=== PATIENT | female | born 1935 | race Caucasian/White ===

== ENCOUNTER 2017-04-03 20:12 | Observation (INO) | payer OTHER ==
[~2017-04-03] VITALS: Ht 167.6 cm; Wt 98.0 kg
[~2017-04-03 20:12] MED LIST: CATAPRES0.3 MG PO; CEPHALEXIN500 MG PO; LIPITOR10 MG PO; METFORMIN HCL500 MG PO; [UNRECOGNIZED DRUG - OTHER] PO; [UNRECOGNIZED DRUG - REMARK]
--- NOTE | 2017-04-03 22:47 | DIAGNOSTIC IMAGING REPORT ---
PROCEDURE: XR CHEST 1 VIEW INDICATION: FEVER TECHNIQUE: Portable AP view (2240 hours). COMPARISON: Compared to chest x-ray on 08/26/2016. FINDINGS: Allowing for suboptimal inspiration, lungs are clear. Heart and mediastinum are normal. Thorax is normal. IMPRESSION: 1. Negative chest.
--- NOTE | 2017-04-03 22:57 | DIAGNOSTIC IMAGING REPORT ---
PROCEDURE: CT HEAD WITHOUT CONTRAST INDICATION: HEADACHE TECHNIQUE: Noncontrast axial images with sagittal and coronal reformations. COMPARISON: None. FINDINGS: Mild to moderate motion. 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 Brain and ventricles are otherwise normal. No evidence of an acute process or hemorrhage. Sinuses and mastoids are normal. IMPRESSION: 1. Allowing for motion, there is evidence of old small vessel disease of the frontal lobes. 2. Otherwise negative head CT. No evidence of acute process. 3. Findings discussed with Dr. Shane Weaver at [address] scans at this facility use dose modulation, iterative reconstruction, and/or weight-based dosing when appropriate to reduce radiation dose to as low as reasonably achievable.
--- NOTE | 2017-04-04 01:41 | ED CLINICAL REPORT ---
Clinical Report - Physicians/Mid Levels [facility] [address] [place] [address] 04/03/2017 20:12 Patient: MATHEW KUO Time Seen: 22:00 Apr 03 2017. Arrived- By private vehicle. Historian- patient. CPT: ER phys charges level 5 (#[id number]). HISTORY OF PRESENT ILLNESS Chief Complaint: WEAKNESS. ( Chills , PRATHER and chest pain. 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 Severity described as moderate at its maximum. When seen in the E.D., severity described as moderate. Modifying factors- relieved by nothing. Not worsened by anything. Described as feeling weak all over. This started today and is still present. No nausea or vomiting. Similar symptoms previously: None. Recent medical care: Not recently seen/assessed. REVIEW OF SYSTEMS The patient has had a headache and weakness. No double vision, fainting episodes, head injury, chest pain or palpitations. No black stools, bloody stools, fever, sore throat or cough. No difficulty breathing, abdominal pain, diarrhea, skin rash or enlarged lymph nodes. No chills. The patient has had difficulty walking. She has had moderate difficulty with urination (incontinent today.). All systems otherwise negative, except as recorded above. PAST HISTORY ( Healing Abscess. Abscess. Cellulitis. Sepsis. UTI - Urinary Tract Infection. Gallstone(s). Sebaceous Cyst. Vomiting. Hypercholesterolemia. Abrasion(s). Laceration. Diabetes Mellitus. Hypertension. ADDITIONAL SURGERIES: Cholecystectomy. Pylenital cyst drained.). Medications: Colcrys Oral. Metoprolol Tartrate Oral. Glipizide Oral. CloNIDine HCl Oral. Triamterene-HCTZ Oral. Aspirin Oral 325mg twice daily. MetFORMIN HCl Oral 500 mg, 2x a day. Allergies: Percodan. SOCIAL HISTORY Never smoker. No alcohol use or drug use. ADDITIONAL NOTES The nursing notes have been reviewed. PHYSICAL EXAM Vital Signs: 04/03/2017 20:16 BP: 176/104. HR: 84. RR: 36. O2 saturation: 99%. Temp: 99.5 F. Pain level now: 310. Appearance: Alert. Eyes: Pupils equal, round and reactive to light. No nystagmus. Extraocular movements normal. ENT: Normal ENT inspection. Dry mucous membranes present. Pharynx normal. Neck: Normal inspection. No meningeal signs. CVS: Normal heart rate and rhythm. Heart sounds normal. Pulses normal. Respiratory: No respiratory distress. Breath sounds normal. Abdomen: Soft. Mild tenderness in the lower abdomen. Back: Normal inspection. No CVA tenderness. Skin: Skin warm. Normal skin color. No rash. Extremities: Extremities exhibit normal ROM. No lower extremity edema. Neuro: Alert. Oriented X 3. Mood/affect normal. Speech normal. Cranial nerves normal (as tested). No cerebellar findings. No motor deficit. No sensory deficit. Reflexes normal. LABS, X-RAYS, AND EKG EKG: No acute ischemia. Rate: 111. Tachycardia. Normal P waves. Normal QRS complex. Left axis deviation. Mild ST depression in lead I, aVL, V5 and V6. Prior EKG unavailable. The study has been interpreted contemporaneously. The study has been independently viewed by me. The EKG appears to be a good tracing. CT Head: No acute changes. (old small vessel disease. no sinus disease.). Head CT performed with contrast. The study was independently viewed by me, interpreted by the radiologist and discussed with the radiologist. Laboratory Tests: Lactate, Serum: (EDWINA: 04/04/2017 05:48) ( AkgRcvd 04/04/2017 06:23) Final results Test Result Flag Units (Reference) LACTIC ACID 1.3 mmol/L (0.4-2.0) [id number]: (EDWINA: 04/04/2017 05:48) ( MsgRcvd 04/04/2017 06:37) Final results Test Result Flag Units (Reference) PROCALCITONIN 46.5 H ng/mL (0-0.5) PCT Concentration: Interpretation : Risk/option for action PCT <=0.5 ng/mL : Systemic : Low risk forinfection(sepsis): progression to severeis not likely. : systemic infection.Local bacterial : CAUTION-PCT levelsinfection is : below 0.5 ng/mL do notpossible. : exclude an infection,because localizedinfections (withoutsystemic signs) may beassociated with suchlow levels. If PCT ismeasured very earlyafter a bacterialchallenge (usually <6hours), these valuesmay still be low. Inthis case PCT shouldbe re-assessed 6-24hours later. PCT >0.5 and : Systemic infection: Moderate risk for<= 2 ng/mL : (sepsis) is : progression to severepossible, but : systemic infection.other conditions : The patient should beare known to : closely monitoredelevate PCT. : both clinically andby re-assessing PCTwithin 6-24 hours. PCT > 2 ng/mL : Systemic infection: High risk for(sepsis) is likely: progression to severeunless other : systemic infection.causes are known. : PCT >= 10 ng/mL : Important systemic: High likelihood ofinflammatory : severe sepsis orresponse, almost : septic shock.exclusively due to:severe bacterial :sepsis or septic :shock. : UA-Culture if indicated: (EDWINA: 04/03/2017 21:22) ( MsgRcvd 04/03/2017 21:51) Final results Test Result Flag Units (Reference) URINE COLOR YELLOW URINE APPEARANCE CLEAR URINE GLUCOSE NEGATIVE (NEGATIVE) URINE BILIRUBIN NEGATIVE (NEGATIVE) URINE KETONE NEGATIVE (NEGATIVE) URINE SPECIFIC GRAVITY 1.010 (1.010-1.030) URINE PH 6.0 (5.0-8.0) URINE PROTEIN 1+ (NEGATIVE) URINE UROBILINOGEN 0.2 EU/dL (0.2-1.0) URINE NITRITE NEGATIVE (NEGATIVE) URINE BLOOD TRACE-INTACT (NEGATIVE) URINE LEUK ESTERASE POSITIVE (NEGATIVE) URINE RBC 1-3 rbc/hpf (0-1) URINE WBC 25-50 wbc/hpf (0-1) URINE EPITHELIAL CELLS 1-3 EPI/hpf (0-5) URINE BACTERIA MODERATE (2+ TO 3+) (NONE SEEN) URINE COMMENT CULTURE INDICATED URINE CULTURES ARE SET-UP BASED ON THE FOLLOWING CRITERIA:POSITIVE NITRITEPOSITIVE LEUKOCYTE ESTERASEGREATER THAN 10 WHITE BLOOD CELLSMODERATE (2+) OR GREATER BACTERIA CBC w Diff: (EDWINA: 04/03/2017 21:08) ( [facility] [place] 04/03/2017 21:16) Final results Test Result Flag Units (Reference) WHITE BLOOD COUNT 4.7 K/uL (4.5-11.5) RED BLOOD COUNT 4.54 M/uL (4.00-5.20) HEMOGLOBIN 13.3 gm/dL (12.0-16.0) HEMATOCRIT 40.9 % (36.0-46.0) MEAN CELL VOLUME 90 fL (80-100) MEAN CORPUSCULAR HGB 29 pg (26-34) MEAN CORPUSCULAR HGB CONC 33 g/dL (31-37) RED CELL DISTRIBUTION WIDTH 13.9 % (11.6-14.8) PLATELET COUNT 330 K/uL (150-400) NEUTROPHIL % 92.4 H % (50-75) LYMPH % 6.5 L % (25-40) MONO % 0.3 L % (3-14) EOSINOPHIL % 0.8 % (0-4) BASOPHIL % 0 % (0-2) Lactate, Serum: (EDWINA: 04/03/2017 00:05) ( [facility] [place] 04/04/2017 00:49) Final results Test Result Flag Units (Reference) LACTIC ACID 2.2 H mmol/L (0.4-2.0) CRITICAL RESULTS CALLEDCalled to YULIET CASTAÑEDA RN 04/04/17 0048Were 2 patient identifiers used? YWas the result read back? Y [id number]: (EDWINA: 04/03/2017 21:10) ( MsgRcvd 04/04/2017 00:32) Final results Test Result Flag Units (Reference) PROCALCITONIN 0.2 ng/mL (0-0.5) PCT Concentration: Interpretation : Risk/option for action PCT <=0.5 ng/mL : Systemic : Low risk forinfection(sepsis): progression to severeis not likely. : systemic infection.Local bacterial : CAUTION-PCT levelsinfection is : below 0.5 ng/mL do notpossible. : exclude an infection,because localizedinfections (withoutsystemic signs) may beassociated with suchlow levels. If PCT ismeasured very earlyafter a bacterialchallenge (usually <6hours), these valuesmay still be low. Inthis case PCT shouldbe re-assessed 6-24hours later. PCT >0.5 and : Systemic infection: Moderate risk for<= 2 ng/mL : (sepsis) is : progression to severepossible, but : systemic infection.other conditions : The patient should beare known to : closely monitoredelevate PCT. : both clinically andby re-assessing PCTwithin 6-24 hours. PCT > 2 ng/mL : Systemic infection: High risk for(sepsis) is likely: progression to severeunless other : systemic infection.causes are known. : PCT >= 10 ng/mL : Important systemic: High likelihood ofinflammatory : severe sepsis orresponse, almost : septic shock.exclusively due to:severe bacterial :sepsis or septic :shock. : CMP: (EDWINA: 04/03/2017 21:08) ( MsgRcvd 04/03/2017 21:36) Final results Test Result Flag Units (Reference) GLUCOSE 83 mg/dL (70-110) BUN 36 H mg/dL (7-18) CREATININE 1.5 H mg/dL (0.6-1.3) Estimated GFR 35.16 mL/min Estimated GFR- 42.62 mL/min Note: Persistent reduction over 3 months in eGFR<60 mL/min/1.73 m2 defines CKD. Patients with eGFR values>=60 mL/min/1.73 m2 may also have CKD if evidence ofpersistent proteinuria. Additional information may be foundat www.kidney.org. SODIUM 142 mmol/L (136-145) POTASSIUM 4.6 mmol/L (3.5-5.1) CHLORIDE 104 mmol/L (98-107) CARBON DIOXIDE 23 mmol/L (21-32) CALCIUM 9.3 mg/dL (8.5-10.1) TOTAL PROTEIN 7.9 g/dL (6.4-8.2) ALBUMIN 3.2 L g/dL (3.3-5.0) BILIRUBIN, TOTAL 0.4 mg/dL (0.0-1.0) ALKALINE PHOSPHATASE 105 U/L (46-116) AST (SGOT) 20 U/L (15-37) ALT (SGPT) 16 U/L (12-78) . PROGRESS AND PROCEDURES Course of Care: IV NS BC times 1 Rocephin 2g IV Zofran 4 mg IV Vicodin 1 po times 2. Patient is stable. Symptoms better. Pt with early urosepsis. Will admit for further care. Discussed case with on-call health care provider, (Jael). Reviewed test results. Agreed upon treatment plan and decision to admit. Health care provider will see patient in ED. Patient/family counseled. Disposition orders written. Disposition: Admitted to Acute Care. CLINICAL IMPRESSION Acute generalized weakness. Early urosepsis. (Electronically signed by Shane Weaver MD 04/04/2017 7:38)
--- NOTE | 2017-04-04 01:41 | ED CLINICAL REPORT ---
Clinical Report - Physicians/Mid Levels [facility] [address] [place] [address] 04/03/2017 20:12 Patient: MATHEW KUO Time Seen: 22:00 Apr 03 2017. Arrived- By private vehicle. Historian- patient. CPT: ER phys charges level 5 (#[id number]). HISTORY OF PRESENT ILLNESS Chief Complaint: WEAKNESS. ( Chills , PRATHER and chest pain. Had rigors just [employer].). Severity described as moderate at its maximum. When seen in the E.D., severity described as moderate. Modifying factors- relieved by nothing. Not worsened by anything. Described as feeling weak all over. This started today and is still present. No nausea or vomiting. Similar symptoms previously: None. Recent medical care: Not recently seen/assessed. REVIEW OF SYSTEMS The patient has had a headache and weakness. No double vision, fainting episodes, head injury, chest pain or palpitations. No black stools, bloody stools, fever, sore throat or cough. No difficulty breathing, abdominal pain, diarrhea, skin rash or enlarged lymph nodes. No chills. The patient has had difficulty walking. She has had moderate difficulty with urination (incontinent today.). All systems otherwise negative, except as recorded above. PAST HISTORY ( Healing Abscess. Abscess. Cellulitis. Sepsis. UTI - Urinary Tract Infection. Gallstone(s). Sebaceous Cyst. Vomiting. Hypercholesterolemia. Abrasion(s). Laceration. Diabetes Mellitus. Hypertension. ADDITIONAL SURGERIES: Cholecystectomy. Pylenital cyst drained.). Medications: Colcrys Oral. Metoprolol Tartrate Oral. Glipizide Oral. CloNIDine HCl Oral. Triamterene-HCTZ Oral. Aspirin Oral 325mg twice daily. MetFORMIN HCl Oral 500 mg, 2x a day. Allergies: Percodan. SOCIAL HISTORY Never smoker. No alcohol use or drug use. ADDITIONAL NOTES The nursing notes have been reviewed. PHYSICAL EXAM Vital Signs: 04/03/2017 20:16 BP: 176/104. HR: 84. RR: 36. O2 saturation: 99%. Temp: 99.5 F. Pain level now: 310. Appearance: Alert. Eyes: Pupils equal, round and reactive to light. No nystagmus. Extraocular movements normal. ENT: Normal ENT inspection. Dry mucous membranes present. Pharynx normal. Neck: Normal inspection. No meningeal signs. CVS: Normal heart rate and rhythm. Heart sounds normal. Pulses normal. Respiratory: No respiratory distress. Breath sounds normal. Abdomen: Soft. Mild tenderness in the lower abdomen. Back: Normal inspection. No CVA tenderness. Skin: Skin warm. Normal skin color. No rash. Extremities: Extremities exhibit normal ROM. No lower extremity edema. Neuro: Alert. Oriented X 3. Mood/affect normal. Speech normal. Cranial nerves normal (as tested). No cerebellar findings. No motor deficit. No sensory deficit. Reflexes normal. LABS, X-RAYS, AND EKG EKG: No acute ischemia. Rate: 111. Tachycardia. Normal P waves. Normal QRS complex. Left axis deviation. Mild ST depression in lead I, aVL, V5 and V6. Prior EKG unavailable. The study has been interpreted contemporaneously. The study has been independently viewed by me. The EKG appears to be a good tracing. CT Head: No acute changes. (old small vessel disease. no sinus disease.). Head CT performed with contrast. The study was independently viewed by me, interpreted by the radiologist and discussed with the radiologist. Laboratory Tests: Lactate, Serum: (EDWINA: 04/04/2017 05:48) ( NcgRcvd 04/04/2017 06:23) Final results Test Result Flag Units (Reference) LACTIC ACID 1.3 mmol/L (0.4-2.0) [id number]: (EDWINA: 04/04/2017 05:48) ( MsgRcvd 04/04/2017 06:37) Final results Test Result Flag Units (Reference) PROCALCITONIN 46.5 H ng/mL (0-0.5) PCT Concentration: Interpretation : Risk/option for action PCT <=0.5 ng/mL : Systemic : Low risk forinfection(sepsis): progression to severeis not likely. : systemic infection.Local bacterial : CAUTION-PCT levelsinfection is : below 0.5 ng/mL do notpossible. : exclude an infection,because localizedinfections (withoutsystemic signs) may beassociated with suchlow levels. If PCT ismeasured very earlyafter a bacterialchallenge (usually <6hours), these valuesmay still be low. Inthis case PCT shouldbe re-assessed 6-24hours later. PCT >0.5 and : Systemic infection: Moderate risk for<= 2 ng/mL : (sepsis) is : progression to severepossible, but : systemic infection.other conditions : The patient should beare known to : closely monitoredelevate PCT. : both clinically andby re-assessing PCTwithin 6-24 hours. PCT > 2 ng/mL : Systemic infection: High risk for(sepsis) is likely: progression to severeunless other : systemic infection.causes are known. : PCT >= 10 ng/mL : Important systemic: High likelihood ofinflammatory : severe sepsis orresponse, almost : septic shock.exclusively due to:severe bacterial :sepsis or septic :shock. : UA-Culture if indicated: (EDWINA: 04/03/2017 21:22) ( MsgRcvd 04/03/2017 21:51) Final results Test Result Flag Units (Reference) URINE COLOR YELLOW URINE APPEARANCE CLEAR URINE GLUCOSE NEGATIVE (NEGATIVE) URINE BILIRUBIN NEGATIVE (NEGATIVE) URINE KETONE NEGATIVE (NEGATIVE) URINE SPECIFIC GRAVITY 1.010 (1.010-1.030) URINE PH 6.0 (5.0-8.0) URINE PROTEIN 1+ (NEGATIVE) URINE UROBILINOGEN 0.2 EU/dL (0.2-1.0) URINE NITRITE NEGATIVE (NEGATIVE) URINE BLOOD TRACE-INTACT (NEGATIVE) URINE LEUK ESTERASE POSITIVE (NEGATIVE) URINE RBC 1-3 rbc/hpf (0-1) URINE WBC 25-50 wbc/hpf (0-1) URINE EPITHELIAL CELLS 1-3 EPI/hpf (0-5) URINE BACTERIA MODERATE (2+ TO 3+) (NONE SEEN) URINE COMMENT CULTURE INDICATED URINE CULTURES ARE SET-UP BASED ON THE FOLLOWING CRITERIA:POSITIVE NITRITEPOSITIVE LEUKOCYTE ESTERASEGREATER THAN 10 WHITE BLOOD CELLSMODERATE (2+) OR GREATER BACTERIA CBC w Diff: (EDWINA: 04/03/2017 21:08) ( [facility] [place] 04/03/2017 21:16) Final results Test Result Flag Units (Reference) WHITE BLOOD COUNT 4.7 K/uL (4.5-11.5) RED BLOOD COUNT 4.54 M/uL (4.00-5.20) HEMOGLOBIN 13.3 gm/dL (12.0-16.0) HEMATOCRIT 40.9 % (36.0-46.0) MEAN CELL VOLUME 90 fL (80-100) MEAN CORPUSCULAR HGB 29 pg (26-34) MEAN CORPUSCULAR HGB CONC 33 g/dL (31-37) RED CELL DISTRIBUTION WIDTH 13.9 % (11.6-14.8) PLATELET COUNT 330 K/uL (150-400) NEUTROPHIL % 92.4 H % (50-75) LYMPH % 6.5 L % (25-40) MONO % 0.3 L % (3-14) EOSINOPHIL % 0.8 % (0-4) BASOPHIL % 0 % (0-2) Lactate, Serum: (EDWINA: 04/03/2017 00:05) ( [facility] [place] 04/04/2017 00:49) Final results Test Result Flag Units (Reference) LACTIC ACID 2.2 H mmol/L (0.4-2.0) CRITICAL RESULTS CALLEDCalled to YULIET CASTAÑEDA RN 04/04/17 0048Were 2 patient identifiers used? YWas the result read back? Y [id number]: (EDWINA: 04/03/2017 21:10) ( MsgRcvd 04/04/2017 00:32) Final results Test Result Flag Units (Reference) PROCALCITONIN 0.2 ng/mL (0-0.5) PCT Concentration: Interpretation : Risk/option for action PCT <=0.5 ng/mL : Systemic : Low risk forinfection(sepsis): progression to severeis not likely. : systemic infection.Local bacterial : CAUTION-PCT levelsinfection is : below 0.5 ng/mL do notpossible. : exclude an infection,because localizedinfections (withoutsystemic signs) may beassociated with suchlow levels. If PCT ismeasured very earlyafter a bacterialchallenge (usually <6hours), these valuesmay still be low. Inthis case PCT shouldbe re-assessed 6-24hours later. PCT >0.5 and : Systemic infection: Moderate risk for<= 2 ng/mL : (sepsis) is : progression to severepossible, but : systemic infection.other conditions : The patient should beare known to : closely monitoredelevate PCT. : both clinically andby re-assessing PCTwithin 6-24 hours. PCT > 2 ng/mL : Systemic infection: High risk for(sepsis) is likely: progression to severeunless other : systemic infection.causes are known. : PCT >= 10 ng/mL : Important systemic: High likelihood ofinflammatory : severe sepsis orresponse, almost : septic shock.exclusively due to:severe bacterial :sepsis or septic :shock. : CMP: (EDWINA: 04/03/2017 21:08) ( MsgRcvd 04/03/2017 21:36) Final results Test Result Flag Units (Reference) GLUCOSE 83 mg/dL (70-110) BUN 36 H mg/dL (7-18) CREATININE 1.5 H mg/dL (0.6-1.3) Estimated GFR 35.16 mL/min Estimated GFR- 42.62 mL/min Note: Persistent reduction over 3 months in eGFR<60 mL/min/1.73 m2 defines CKD. Patients with eGFR values>=60 mL/min/1.73 m2 may also have CKD if evidence ofpersistent proteinuria. Additional information may be foundat www.kidney.org. SODIUM 142 mmol/L (136-145) POTASSIUM 4.6 mmol/L (3.5-5.1) CHLORIDE 104 mmol/L (98-107) CARBON DIOXIDE 23 mmol/L (21-32) CALCIUM 9.3 mg/dL (8.5-10.1) TOTAL PROTEIN 7.9 g/dL (6.4-8.2) ALBUMIN 3.2 L g/dL (3.3-5.0) BILIRUBIN, TOTAL 0.4 mg/dL (0.0-1.0) ALKALINE PHOSPHATASE 105 U/L (46-116) AST (SGOT) 20 U/L (15-37) ALT (SGPT) 16 U/L (12-78) . PROGRESS AND PROCEDURES Course of Care: IV NS BC times 1 Rocephin 2g IV Zofran 4 mg IV Vicodin 1 po times 2. Patient is stable. Symptoms better. Pt with early urosepsis. Will admit for further care. Discussed case with on-call health care provider, (Jael). Reviewed test results. Agreed upon treatment plan and decision to admit. Health care provider will see patient in ED. Patient/family counseled. Disposition orders written. Disposition: Admitted to Acute Care. CLINICAL IMPRESSION Acute generalized weakness. Early urosepsis. (Electronically signed by Shane Weaver MD 04/04/2017 7:38)
--- NOTE | 2017-04-04 01:41 | ED NURSING NOTES ---
Clinical Report - Nurses [facility] [address] [place] [address] 04/03/2017 20:12 Patient: MATHEW KUO TRIAGE Triage time 20:Apr 03 2017. Acuity: LEVEL 3. Chief Complaint: CHILLS, HEADACHE and CHEST PAIN. Alert. No acute distress. SEPSIS SCREEN: Sepsis Screen: negative respiratory rate greater than 20. LUIZ COMA SCORE: Luiz Coma Scale: 15- eyes open spontaneously (4); best verbal response- oriented x 4 (5); best motor response- obeys commands (6). --20:27 Maranda Ware R.N. 20:16 04/03/17. BP: 176/104. HR: 84. RR: 36. O2 saturation: 99%. Temp: 99.5 F. Pain level now: 01/21. --20:27 Maranda Ware R.N. Weight: 99.7 kg stated. Height/Length: 108 inches Per Patient. BMI: 13.3. --20:19 Maranda Ware R.N. Medications Aspirin Oral 325mg twice daily. MetFORMIN HCl Oral 500 mg, 2x a day. --20:22 Maranda Ware R.N. Triamterene-HCTZ Oral. --20:23 Maranda Ware R.N. CloNIDine HCl Oral. --20:23 Maranda Ware R.N. Glipizide Oral. --20:24 Maranda Ware R.N. Metoprolol Tartrate Oral. --20:24 Maranda Ware R.N. Colcrys Oral. --20:25 Maranda Ware R.N. Allergies Percodan. --20:22 Maranda Ware R.N. History Arrived by EMS. Historian: patient. The patient has had pre-existing weakness. Treatment SENIOR ELECTRICAL PROJECT MANAGER: None. EMS treatment SENIOR ELECTRICAL PROJECT MANAGER verbally communicated. Finger stick glucose performed (153). BP: 158 / 60. HR: 76. RR: 13. PAST MEDICAL HX: Immunizations: status is unknown. SOCIAL HX: Never smoker. No alcohol use or drug use. No infectious disease exposure. SELF HARM ASSESSMENT: A self harm assessment was performed. The patient answered "no" to the question "Do you have thoughts of harming or killing yourself?". FALL RISK ASSESSMENT: Fall risk assessment completed. No fall risk identified. NUTRITIONAL RISK ASSESSMENT: The nutritional risk assessment revealed no deficiencies. FUNCTIONAL ASSESSMENT: Functional assessment: no impairments noted. LEARNING NEEDS ASSESSMENT: The learning needs assessment revealed no barriers. ABUSE ASSESSMENT: Abuse assessment: The patient was asked "Do you feel safe in your home?". SKIN INTEGRITY ASSESSMENT: Skin integrity risk assessment completed. No skin integrity risk identified. --20:27 Maranda Ware R.N. PROBLEMS: Healing Abscess. Abscess. Cellulitis. Sepsis. UTI - Urinary Tract Infection. Gallstone(s). Sebaceous Cyst. Vomiting. Hypercholesterolemia. Abrasion(s). Laceration. Diabetes Mellitus. Hypertension. --20:27 Maranda Ware R.N. ADDITIONAL SURGERIES: Cholecystectomy. Pylenital cyst drained. --20:27 Maranda Ware R.N. Interventions ID band on patient. To room. --20:27 Maranda Ware R.N. PHYSICAL ASSESSMENT GENERAL / NEURO / PSYCH: Alert. Oriented X 4. HEENT: No facial asymmetry noted. Mucous membranes are pink. RESPIRATORY: Respirations not labored. CVS: Capillary refill is greater than 2 seconds. GI / : Abdomen soft and nontender. EXTREMITIES: Lower extremity edema. SKIN: Skin is warm and dry. --20:38 Maranda Ware R.N. NURSING PROGRESS NOTES monitor technician placed on patient; clinical research monitor- Lead II; monitor alarms on. Patient gowned. Head of bed elevated. Patient identifiers checked. Call light placed in reach. Side rails up x 2. Bed placed in lowest position. Brakes of bed on. --20:38 Maranda Ware R.N. Finger stick glucose: 115. --20:43 Maranda Ware R.N. 20:43 04/03/2017 Site #1 started via IV in the left hand with an 22g angiocath, with aseptic technique and good blood return; two attempts. Saline lock flushed with 10 mL saline. --20:43 Maranda Ware R.N. Patient ID band checked for patient name and birthdate: family confirmed. Blood samples drawn from the left hand with syringe 23g by nurse ; labeled in presence of the patient and sent to lab: pediatric blood culture. --22:36 Maranda aWre R.N. 21:37 04/03/17. 14 fr silver catheter placed. Reason for indwelling catheter: requires prolonged immobilization. During procedure hand hygiene observed and sterile equipment and aseptic technique used. Return of 100 mL yellow-colored cloudy urine; attached to bedside drainage bag positioned below the bladder and secured with stabilization device. She tolerated procedure well. --22:37 Maranda Ware R.N. 22:48 04/03/2017 Started bag #1 1000 mL IV Fluids IV NS (Saline); at 250 mL/hr over 2 hour(s) via site #1 via IV pump. Allergies verified and confirmed 5 rights. IV patency established. IV site checked: no pain, redness, or swelling. IV flushed thoroughly pre- and post-medication administration. --22:53 Maranda Ware R.N. 22:49 04/03/2017 Started 2 gm of Rocephin (CefTRIAXone Sodium) IVPB in bag #1 50 mL; at 2 gm/hr over 1 hour(s) via site #1 via IV pump. Allergies verified and confirmed 5 rights. IV patency established. IV site checked: no pain, redness, or swelling. IV flushed thoroughly pre- and post-medication administration. --22:54 Maranda Ware R.N. 22:50 04/03/2017 Hydrocodone-APAP (Hydrocodone-Acetaminophen) PO 5/325 mg Tablets 1 tab given. Allergies verified, confirmed 5 rights and sedative warning given to the patient and patient's family. --22:55 Maranda Ware R.N. 22:55 04/03/2017 Zofran (Ondansetron HCl) IVP 4 mg given over 2 minute(s) via site #1. Allergies verified and confirmed 5 rights. IV patency established. IV site checked: no pain, redness, or swelling. IV flushed thoroughly pre- and post-medication administration. IVP given by RN. --22:55 Maranda Ware R.N. ( unable to run IVF at 500cc / hour due to small gauge IV and fragile veins. Notified MD that IVF are running at 250/hour). --22:56 Maranda Ware R.N. 23:03 04/03/17. BP: 155/85. HR: 104. RR: 33. O2 saturation: 91% on nasal cannula. O2 started at 2 liters/minute. --23:05 Maranda Ware R.N. Care transferred and report received (KAREEM Lopez). --23:12 Sami Hunter R.N. Care transferred and report given (KAREEM Herbert). --00:01 Sami Hunter R.N. 00:00 04/04/17. BP: 153/68. HR: 103. RR: 24. O2 saturation: 93%. Pain level now: 0/10. --00:21 Piedad Lieberman R.N. ( Patient given water (approved by ED phys)). --00:21 Piedad Lieberman R.N. Critical value relayed to ED by Matthieu. Critical value received by gail SERNA. Lactate level: 2.2. Critical value read back. Verified lab result and patient ID. ED physician notifed of critical value. --00:50 Gail Howe 00:56 04/04/2017 Rocephin IVPB Discontinued: bag #1 completed upon admission. Total amount infused: 50 mL. IV patency established. IV site checked: no pain, redness, or swelling. IV flushed thoroughly. --00:56 Sami Hunter R.N. ( Patient repositioned for comfort.). --01:48 Piedad Lieberman R.N. 04:01 04/04/2017 Hydrocodone-APAP (Hydrocodone-Acetaminophen) PO 5/325 mg Tablets 1 tab given. Allergies verified, confirmed 5 rights and sedative warning given to the patient. --04:01 Piedad Lieberman R.N. Intake & Output 01:47 04/04/17. Urine, with return of 500 mL yellow-colored cloudy urine; attached to bedside drainage bag. --01:47 Piedad Lieberman R.N. DISPOSITION / DISCHARGE Report was given to a nurse via a phone call. Report included patient's care, treatment, medications, reviewed medication reconcilliation, and condition (including any recent changes or anticipated changes). All questions were answered. Report was acknowledged and care was transferred. Bed obtained and ready (209). --03:50 Piedad Lieberman R.N. Admitted to the Critical Care Unit. Transported via stretcher by nurse (with CCU RN). --04:03 Piedad Lieberman R.N. ( Patient's IV saline locked and no fluids running upon admission to floor.). --06:01 Piedad Lieberman R.N. 03:15 04/04/17. BP: 152/60. HR: 95. RR: 21. O2 saturation: 95%. Pain level now: 0/10. --06:21 Piedad Lieberman R.N. Locked/Released at 04/04/2017 6:21 by Piedad Lieberman R.N.
--- NOTE | 2017-04-04 01:41 | ED ORDER SUMMARY ---
..... Patient: MATHEW KUO OrderSheet [facility] VisitID: [id number] [address] [place] [address] 82y, F Registration Date/Time: 04/03/2017 ORDER SHEET Weight: 99.7 kg (stated) Allergies: Percodan GENERAL ORDERS: CBC w Diff Urgent (20:39 04/03/2017 KKnebel R.N. per protocol) (Ack 20:41 AMcQuoid ER Tech1) (21:46 AMcQuoid ER Tech1) CMP Urgent (20:39 04/03/2017 KKnebel R.N. per protocol) (Ack 20:41 AMcQuoid ER Tech1) (21:46 AMcQuoid ER Tech1) UA-Culture if indicated Urgent (20:39 04/03/2017 KKnebel R.N. per protocol) (Ack 20:41 AMcQuoid ER Tech1) (22:24 KKnebel R.N.) EKG - ER Stat (20:39 04/03/2017 KKnebel R.N. per protocol) (Ack 20:41 AMcQuoid ER Tech1) (21:46 AMcQuoid ER Tech1) POC Glucose (20:39 04/03/2017 KKnebel R.N. per protocol) (Ack 20:41 AMcQuoid ER Tech1) (22:24 KKnebel R.N.) NPO (20:39 04/03/2017 KKnebel R.N. per protocol) (Ack 20:41 AMcQuoid ER Tech1) (22:24 KKnebel R.N.) Blood Culture (No) (N/A) Urgent (22:28 04/03/2017 Dimas WILLIS) (Ack 22:29 AMcQuoid ER Tech1) (22:37 KKnebel R.N.) CT Head wo Cont Urgent (22:29 04/03/2017 Dimas WILLIS) (22:37 KKnebel R.N.) Chest 1V Urgent (22:29 04/03/2017 Dimas WILLIS) (Ack 22:39 AMcQuoid ER Tech1) (22:45 Kartik) Lactate, Serum Urgent (23:42 04/03/2017 Dimas WILLIS) (Ack 23:46 AMcQuoid ER Tech1) (0:19 RMarsden R.N.) PCT (Procalcitonin) Urgent (23:42 04/03/2017 Dimas WILLIS) (Ack 23:46 AMcQuoid ER Tech1) (0:19 RMarsden R.N.) MEDICATION ORDERS: Hydrocodone-APAP PO 5/325 mg (NOW) (22:29 04/03/2017 Dimas WILLIS) (22:55 KKnebel R.N.) Hydrocodone-APAP PO 5/325 mg (NOW) (03:57 04/04/2017 Dimas WILLIS) (Ack 3:58 RMarsden R.N.) (4:01 RMarsden R.N.) IV FLUIDS: IV Saline Lock (20:39 04/03/2017 Checobel R.N. per protocol) (22:26 KKnebel R.N.) IV NS : initial bolus 500 mL (1000 mL/hr), then 250 mL/hr for 2h (NOW); Routine (22:27 04/03/2017 Dimas WILLIS) (22:53 KKnebel R.N.) Rocephin IV 2 gm/50mL (NOW) (22:28 04/03/2017 Dimas WILLIS) (22:54 KKnebel R.N.) Zofran IV 4 mg (NOW) (22:29 04/03/2017 Dimas WILLIS) (22:55 KKnebel R.N.) ORDER SHEET NOTES: [Electronically signed by Piedad Lieberman R.N. (06:21 04/04/2017)] [Electronically signed by Shane Weaver MD (07:38 04/04/2017)] [Electronically locked/signed by Piedad Lieberman R.N. (06:21 04/04/2017)]
--- NOTE | 2017-04-04 01:41 | ED ORDER SUMMARY ---
..... Patient: MATHEW KUO OrderSheet [facility] VisitID: [id number] [address] [place] [address] 82y, F Registration Date/Time: 04/03/2017 ORDER SHEET Weight: 99.7 kg (stated) Allergies: Percodan GENERAL ORDERS: CBC w Diff Urgent (20:39 04/03/2017 KKnebel R.N. per protocol) (Ack 20:41 AMcQuoid ER Tech1) (21:46 AMcQuoid ER Tech1) CMP Urgent (20:39 04/03/2017 KKnebel R.N. per protocol) (Ack 20:41 AMcQuoid ER Tech1) (21:46 AMcQuoid ER Tech1) UA-Culture if indicated Urgent (20:39 04/03/2017 KKnebel R.N. per protocol) (Ack 20:41 AMcQuoid ER Tech1) (22:24 KKnebel R.N.) EKG - ER Stat (20:39 04/03/2017 KKnebel R.N. per protocol) (Ack 20:41 AMcQuoid ER Tech1) (21:46 AMcQuoid ER Tech1) POC Glucose (20:39 04/03/2017 KKnebel R.N. per protocol) (Ack 20:41 AMcQuoid ER Tech1) (22:24 KKnebel R.N.) NPO (20:39 04/03/2017 KKnebel R.N. per protocol) (Ack 20:41 AMcQuoid ER Tech1) (22:24 KKnebel R.N.) Blood Culture (No) (N/A) Urgent (22:28 04/03/2017 Dimas WILLIS) (Ack 22:29 AMcQuoid ER Tech1) (22:37 KKnebel R.N.) CT Head wo Cont Urgent (22:29 04/03/2017 Dimas WILLIS) (22:37 KKnebel R.N.) Chest 1V Urgent (22:29 04/03/2017 Dimas WILLIS) (Ack 22:39 AMcQuoid ER Tech1) (22:45 Kartik) Lactate, Serum Urgent (23:42 04/03/2017 Dimas WILLIS) (Ack 23:46 AMcQuoid ER Tech1) (0:19 RMarsden R.N.) PCT (Procalcitonin) Urgent (23:42 04/03/2017 Dimas WILLIS) (Ack 23:46 AMcQuoid ER Tech1) (0:19 RMarsden R.N.) MEDICATION ORDERS: Hydrocodone-APAP PO 5/325 mg (NOW) (22:29 04/03/2017 Dimas WILLIS) (22:55 KKnebel R.N.) Hydrocodone-APAP PO 5/325 mg (NOW) (03:57 04/04/2017 Dimas WILLIS) (Ack 3:58 RMarsden R.N.) (4:01 RMarsden R.N.) IV FLUIDS: IV Saline Lock (20:39 04/03/2017 Checobel R.N. per protocol) (22:26 KKnebel R.N.) IV NS : initial bolus 500 mL (1000 mL/hr), then 250 mL/hr for 2h (NOW); Routine (22:27 04/03/2017 Dimas WILLIS) (22:53 KKnebel R.N.) Rocephin IV 2 gm/50mL (NOW) (22:28 04/03/2017 Dimas WILLIS) (22:54 KKnebel R.N.) Zofran IV 4 mg (NOW) (22:29 04/03/2017 Dimas WILLIS) (22:55 KKnebel R.N.) ORDER SHEET NOTES: [Electronically signed by Piedad Lieberman R.N. (06:21 04/04/2017)] [Electronically signed by Shane Weaver MD (07:38 04/04/2017)] [Electronically locked/signed by Piedad Lieberman R.N. (06:21 04/04/2017)]
--- NOTE | 2017-04-04 03:31 | Progress Note ---
Subjective General Admission History and Physical Examination Patient Name: Anuja Craolina. Admission Date: 04/04/2017 Primary Care Provider: Emilie Hopper [facility] Attending Physician: Socrates Omalley M.D. Admitting Physician: Jeffrey Elder M.D. Code Status: full Room: 209 S SUBJECTIVE Historian Patient Reliability: good Chief Complaint: Nausea, vomiting Weakness History of Present Illness: The patient is a 82-year-old female with significant past medical history of diabetes type 2, hypertension, hyperlipidemia, gouty arthritis, TIA presenting urinary frequency, rigors and chills. Patient reports that she's had minimal improvement with her home therapy. She began having worsening symptoms over the past day. Patient states that she's been having nausea, vomiting, chills. The [facility] ER evaluation was consistent with UTI; early signs of sepsis.. Secondary to the above, the patient was admitted by Jeffrey Elder M.D. for further evaluation and treatment. Clinic patient of Yulissa French. Relatively well-controlled blood pressure, cholesterol, diabetes. PAST MEDICAL HISTORY Illnesses: 1. Diabetes mellitus. 2. 2. Hypertension. 3. Hyperlipidemia. 4. Gouty arthritis. 5. TIA Allergies: 1. Procardia nifedipine Medications: 1. Metformin 1000 mg twice a day 2. Aspirin 325 mg twice a day 3. Atorvastatin 10 mg daily. 4. Colchicine 0.6 mg twice a day. 5. Clonidine 0.2 mg twice a day 6. Metoprolol 25 mg twice a day 7. Hydrochlorothiazide 25 mg daily Surgery: 1. Cholecystectomy 2. Pilonidal cyst Drainage Injuries: 1. No recent injuries FAMILY HISTORY Parents: 1. Father, passed, 2. Mother, passed SOCIAL HISTORY 1. Marital Status: Single, 2. Mandaeism: unknown 3. 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 Occupational health exposures: watched HABITS 1. Tobacco: noone 2. Drugs: none 3. Alcohol: none 4. Caffeine: uknown HEALTH SUPERVISION Item/Test uknown IMMUNIZATIONS: uknown ADVANCED DIRECTIVES: 1. Living well: partial 2. POLST: none 3. Code Status: No Code (no heroics) 4. Durable Power Pick Up Truck Driver Health care: daughter 5. Donor card: [facility] REVIEW OF SYSTEMS Remarkable for those things stated in the history of present illness and past medical history. Seventeen point review of system completed with the following notable findings: ROS Constitutional Fever, Chills, Weakness, Malaise. Eyes Denies: Vision Change. Respiratory Denies: Dry, SOB w/exertion. Cardiovascular Denies: Palpitations, Orthopnea. Musculoskeletal Denies: Arm Pain. Neurological Incoordination. Denies: Numbness. Physical Exam Vital Signs / I&Os Vital Signs Date Time Temp Pulse Resp B/P Pulse O2 O2 Flow FiO2 Ox Delivery Rate 04/04 439 98.4 91 18 152/66 100 Nasal 3.0 Cannula 04/04 433 3.0 General Appearance Oriented X3, Cooperative, Mild distress HEENT Normal exam, EOMI Lungs Clear to auscultation, Normal air movement Neck No JVD, No masses Cardiovascular Normal S1 and S2, No murmurs, gallops, rubs Abdomen Soft, No tenderness Extremities edematous changes LAB Results Laboratory Tests 04/03 Chemistry Plasma Sodium (136 - 145 mmol/L) 142 Plasma Potassium (3.5 - 5.1 mmol/L) 4.6 Plasma Chloride (98 - 107 mmol/L) 104 CO2 (Enzymatic) (21 - 32 mmol/L) 23 BUN (7 - 18 mg/dL) 36 Creatinine (0.6 - 1.3 mg/dL) 1.5 Est GFR ( Amer) (mL/min) 42.62 Est GFR (Non-Af Amer) (mL/min) 35.16 Glucose (70 - 110 mg/dL) 83 Plasma Calcium (8.5 - 10.1 mg/dL) 9.3 Total Bilirubin (0.0 - 1.0 mg/dL) 0.4 AST (15 - 37 U/L) 20 ALT (12 - 78 U/L) 16 Alkaline Phosphatase (46 - 116 U/L) 105 Total Protein (6.4 - 8.2 g/dL) 7.9 Albumin (3.3 - 5.0 g/dL) 3.2 Procalcitonin (0 - 0.5 ng/mL) 0.2 Hematology WBC (4.5 - 11.5 K/uL) 4.7 RBC (4.00 - 5.20 M/uL) 4.54 Hgb (12.0 - 16.0 gm/dL) 13.3 Hct (36.0 - 46.0 %) 40.9 MCV (80 - 100 fL) 90 MCH (26 - 34 pg) 29 RDW (11.6 - 14.8 %) 13.9 Neut % (Auto) (50 - 75 %) 92.4 Lymph % (Auto) (25 - 40 %) 6.5 Pickett % (Auto) (3 - 14 %) 0.3 Eos % (Auto) (0 - 4 %) 0.8 Baso % (Auto) (0 - 2 %) 0 Plt Count, EDTA (150 - 400 K/uL) 330 PUBS MCHC (31 - 37 g/dL) 33 Urines Urine Color YELLOW Urine Appearance CLEAR Urine pH (5.0 - 8.0) 6.0 Ur Specific Wellington (1.010 - 1.030) 1.010 Urine Protein (NEGATIVE) 1+ Urine Ketones (NEGATIVE) NEGATIVE Urine Blood (NEGATIVE) TRACE-INTACT Urine Nitrite (NEGATIVE) NEGATIVE Urine Bilirubin (NEGATIVE) NEGATIVE Urine Urobilinogen (0.2 - 1.0 EU/dL) 0.2 Ur Leukocyte Esterase (NEGATIVE) POSITIVE Urine RBC (0 - 1 rbc/hpf) 1-3 Urine WBC (0 - 1 wbc/hpf) 25-50 Ur Epithelial Cells (0 - 5 EPI/hpf) 1-3 Urine Bacteria (NONE SEEN) MODERATE (2+ TO 3+) Urine Glucose (NEGATIVE) NEGATIVE Urine Comment CULTURE INDICATED 04/04 0050 Chemistry Lactic Acid Cancelled Microbiology Date/Time Procedure - Status Source Growth 04/03 2235 Blood Culture - RECD BLOOD 04/03 2122 Urine Culture - RECD URINE CC 04/03 2100 Blood Culture - RECD BLOOD Assessment and Plan Problem List 1. UTI Plan UTI being treated well with daily dose of vancomycin. Patient could easily treated as an outpatient once the symptoms improve. Patient has had a risk for uroseptic picture. Ceftriaxone 1 g every 24. Discharge on oral antibiotics Follow-up with primary care 2. EARLY SEPSIS Plan Symptomatic response related to the recent UTI. - Monitor Trending labs Following serial pre-calcitonin and lactic acid. Continue with fluid hydration. Saline 100 cc. 3. HYPERTENSION Status Chronic Onset Date Unknown Plan Previous diagnosis of hypertension. Plan to continue with the clonidine, hydrochlorothiazide, metoprolol Monitor and trend blood pressure 4. DIABETES MELLITUS Status Chronic Onset Date Unknown Plan Plan hold any glyburide. Continue with the metformin Sliding scale Carb consistent diet. Current status: Fair. stable Anticipated discharge date: 1-2 days Anticipated discharge placement: Home Patient care time: Time spent in chart review, patient interview, physical exam, CPOE, and care documentation: 70 minutes Visit to patient today: 1 Complexity of care mild to moderate. E&M Codes Admission: Obsv-Comp/High/[id number]
[2017-04-04 04:39] VITALS: BP 152/66
[2017-04-04] MEDS ORDERED: METFORMIN HCL500 MG PO (04:56)
--- NOTE | 2017-04-04 05:50 | Progress Note ---
Subjective General ADVANCED CARE PLAN History of Present Illness 82-year-old female with significant past medical history of diabetes type 2, hypertension, hyperlipidemia, gouty arthritis, TIA presenting urinary frequency , rigors and chills. Patient reports that she's had minimal improvement with her home therapy. She began having worsening symptoms over the past day. Patient states that she's been having nausea, vomiting, chills. The [facility] ER evaluation was consistent with UTI; early signs of sepsis.. Secondary to the above, the patient was admitted by Jeffrey Elder M.D. for further evaluation and treatment. A discussion was undertaken with the patient regarding previous advance care arrangements/decisions. The following advanced directives were noted by the patient and discussed with me at the time of admission. ADVANCED DIRECTIVES: 1. Living well: reviewed; yes 2. POLST: none 3. CODE STATUS: No code 4. 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 Donor card:none The patient has expressed interest in not pursuing any form of resuscitation at this time. She has opted not to pursue intubation/mechanical ventilation, CPR, electrical cardioversion, or life-sustaining efforts involving drugs at the time of cardiopulmonary arrest. The patient's wishes were documented in the chart and orders regarding the patient's wishes entered into the [employer] CPOE system. The "Advance Care Plan Document" was not distributed to patient to discuss with her family. Less than 30 minutes was spent in performing the above tasks and documentation of the patient's advanced care plan.
--- NOTE | 2017-04-04 05:50 | Progress Note ---
Subjective General ADVANCED CARE PLAN History of Present Illness 82-year-old female with significant past medical history of diabetes type 2, hypertension, hyperlipidemia, gouty arthritis, TIA presenting urinary frequency , rigors and chills. Patient reports that she's had minimal improvement with her home therapy. She began having worsening symptoms over the past day. Patient states that she's been having nausea, vomiting, chills. The [facility] ER evaluation was consistent with UTI; early signs of sepsis.. Secondary to the above, the patient was admitted by Jeffrey Elder M.D. for further evaluation and treatment. A discussion was undertaken with the patient regarding previous advance care arrangements/decisions. The following advanced directives were noted by the patient and discussed with me at the time of admission. ADVANCED DIRECTIVES: 1. Living well: reviewed; yes 2. POLST: none 3. CODE STATUS: No code 4. 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 Donor card:none The patient has expressed interest in not pursuing any form of resuscitation at this time. She has opted not to pursue intubation/mechanical ventilation, CPR, electrical cardioversion, or life-sustaining efforts involving drugs at the time of cardiopulmonary arrest. The patient's wishes were documented in the chart and orders regarding the patient's wishes entered into the [employer] CPOE system. The "Advance Care Plan Document" was not distributed to patient to discuss with her family. Less than 30 minutes was spent in performing the above tasks and documentation of the patient's advanced care plan.
[2017-04-04 07:39] VITALS: BP 146/52
--- NOTE | 2017-04-04 07:39 | ED MED RECONCILIATION SUMMARY ---
Patient: MATHEW KUO Medication Reconciliation Report [facility] VisitID: [id number] [address] [place] [address] 82y, F Registration Date/Time: 04/03/2017 Weight: 99.7 kg Height/Length: 108 in. BMI: 13.3 ALLERGIES: Percodan The patient's Home Medications are listed below: THE FOLLOWING MEDICATIONS NEED TO BE RECONCILED: Aspirin Oral 325mg twice daily CloNIDine HCl Oral Colcrys Oral Glipizide Oral MetFORMIN HCl Oral 500 mg, 2x a day Metoprolol Tartrate Oral Triamterene-HCTZ Oral The source(s) of the original Home Medication information: Not obtained. The following Medications were given to the patient in the Emergency Department: IV NS IV Fluids bolus 0, then 250 mL/hr, administered: 04/03/2017 10:48:00 PM Rocephin [IVPB] IVPB bolus 0, then 2 gm 2 gm/hr, administered: 04/03/2017 10:49:00 PM Hydrocodone-APAP [PO] PO 1 tab, administered: 04/03/2017 10:50:00 PM Zofran [IVP] IVP 4 mg, administered: 04/03/2017 10:55:00 PM Hydrocodone-APAP [PO] PO 1 tab, administered: 04/04/2017 4:01:00 AM The following Medications were prescribed to the patient: None.
--- NOTE | 2017-04-04 07:39 | ED MAR SUMMARY ---
..... Medication Administration Record [facility] [address] [place] [address] Patient: MATHEW KUO Visit ID: [id number] 82y, F Weight: 99.7 kg Height/Length: 108 in BMI: 13.3 ALLERGIES: Percodan Start 22:48 04/03/2017 Maranda Ware R.N. Medication Administered: IV NS (SALINE), Dose: IV Fluids over 2 hour(s), Rate: 250 mL/hr, Dispensed: 1000 mL bag, Site: #1 left hand. Medication Ordered: IV NS : initial bolus 500 mL (1000 mL/hr), then 250 mL/hr for 2h (NOW); Routine. Start 22:49 04/03/2017 Maranda Ware R.N., Stop 00:56 04/04/2017 Sami Hunter R.N. Medication Administered: ROCEPHIN [IVPB] (CEFTRIAXONE SODIUM), Dose: 2 gm IVPB over 1 hour(s), Rate: 2 gm/hr, Dispensed: 50 mL bag, Site: #1 left hand. Medication Ordered: Rocephin IV 2 gm/50mL (NOW). Given 22:50 04/03/2017 Maranda Ware R.N. Medication Administered: HYDROCODONE-APAP [PO] (HYDROCODONE-ACETAMINOPHEN), Dose: 1 tab 5/325 mg Tablets PO. Medication Ordered: Hydrocodone-APAP PO 5/325 mg (NOW). Given 22:55 04/03/2017 Maranda Ware R.N. Medication Administered: ZOFRAN [IVP] (ONDANSETRON HCL), Dose: 4 mg IVP over 2 minute(s), Site: #1 left hand. Medication Ordered: Zofran IV 4 mg (NOW). Given 04:01 04/04/2017 Piedad Lieberman R.N. Medication Administered: HYDROCODONE-APAP [PO] (HYDROCODONE-ACETAMINOPHEN), Dose: 1 tab 5/325 mg Tablets PO. Medication Ordered: Hydrocodone-APAP PO 5/325 mg (NOW).
--- NOTE | 2017-04-04 07:39 | ED DISCHARGE INSTRUCTIONS ---
Patient: MATHEW KUO General Instructions [facility] VisitID: [id number] [address] [place] [address] 82y, F Registration Date/Time: 04/03/2017 Acute generalized weakness. Early urosepsis. (Electronically signed by Shane Weaver MD 04/04/2017 7:38)
--- NOTE | 2017-04-04 07:39 | ED MED RECONCILIATION SUMMARY ---
Patient: MATHEW KUO Medication Reconciliation Report [facility] VisitID: [id number] [address] [place] [address] 82y, F Registration Date/Time: 04/03/2017 Weight: 99.7 kg Height/Length: 108 in. BMI: 13.3 ALLERGIES: Percodan The patient's Home Medications are listed below: THE FOLLOWING MEDICATIONS NEED TO BE RECONCILED: Aspirin Oral 325mg twice daily CloNIDine HCl Oral Colcrys Oral Glipizide Oral MetFORMIN HCl Oral 500 mg, 2x a day Metoprolol Tartrate Oral Triamterene-HCTZ Oral The source(s) of the original Home Medication information: Not obtained. The following Medications were given to the patient in the Emergency Department: IV NS IV Fluids bolus 0, then 250 mL/hr, administered: 04/03/2017 10:48:00 PM Rocephin [IVPB] IVPB bolus 0, then 2 gm 2 gm/hr, administered: 04/03/2017 10:49:00 PM Hydrocodone-APAP [PO] PO 1 tab, administered: 04/03/2017 10:50:00 PM Zofran [IVP] IVP 4 mg, administered: 04/03/2017 10:55:00 PM Hydrocodone-APAP [PO] PO 1 tab, administered: 04/04/2017 4:01:00 AM The following Medications were prescribed to the patient: None.
--- NOTE | 2017-04-04 07:39 | ED MAR SUMMARY ---
..... Medication Administration Record [facility] [address] [place] [place] [address] Patient: MATHEW KUO Visit ID: [id number] 82y, F Weight: 99.7 kg Height/Length: 108 in BMI: 13.3 ALLERGIES: Percodan Start 22:48 04/03/2017 Maranda Ware R.N. Medication Administered: IV NS (SALINE), Dose: IV Fluids over 2 hour(s), Rate: 250 mL/hr, Dispensed: 1000 mL bag, Site: #1 left hand. Medication Ordered: IV NS : initial bolus 500 mL (1000 mL/hr), then 250 mL/hr for 2h (NOW); Routine. Start 22:49 04/03/2017 Maranda Ware R.N., Stop 00:56 04/04/2017 Sami Hunter R.N. Medication Administered: ROCEPHIN [IVPB] (CEFTRIAXONE SODIUM), Dose: 2 gm IVPB over 1 hour(s), Rate: 2 gm/hr, Dispensed: 50 mL bag, Site: #1 left hand. Medication Ordered: Rocephin IV 2 gm/50mL (NOW). Given 22:50 04/03/2017 Maranda Ware R.N. Medication Administered: HYDROCODONE-APAP [PO] (HYDROCODONE-ACETAMINOPHEN), Dose: 1 tab 5/325 mg Tablets PO. Medication Ordered: Hydrocodone-APAP PO 5/325 mg (NOW). Given 22:55 04/03/2017 Maranda Ware R.N. Medication Administered: ZOFRAN [IVP] (ONDANSETRON HCL), Dose: 4 mg IVP over 2 minute(s), Site: #1 left hand. Medication Ordered: Zofran IV 4 mg (NOW). Given 04:01 04/04/2017 Piedad Lieberman R.N. Medication Administered: HYDROCODONE-APAP [PO] (HYDROCODONE-ACETAMINOPHEN), Dose: 1 tab 5/325 mg Tablets PO. Medication Ordered: Hydrocodone-APAP PO 5/325 mg (NOW).
--- NOTE | 2017-04-04 07:39 | ED DISCHARGE INSTRUCTIONS ---
Patient: MATHEW KUO General Instructions [facility] VisitID: [id number] [address] [place] [address] 82y, F Registration Date/Time: 04/03/2017 Acute generalized weakness. Early urosepsis. (Electronically signed by Shane Weaver MD 04/04/2017 7:38)
[2017-04-04 11:11] VITALS: BP 104/62
[2017-04-04 14:40] VITALS: BP 125/46
[2017-04-04 18:20] VITALS: BP 101/83
[2017-04-04 22:32] VITALS: BP 117/60
[2017-04-05] VITALS (8 sets, daily range): BP systolic 121–208; BP diastolic 41–97
[2017-04-05] MEDS ORDERED: LEVAQUIN500 MG PO (10:10)
--- NOTE | 2017-04-05 10:45 | DISCHARGE SUMMARY ---
ADMIT DATE: 04/04/2017 DISCHARGE DATE: 04/05/2017 DISCHARGE DIAGNOSES: 1. Urinary tract infection 2. Diabetes mellitus 3. Hypertension BRIEF HISTORY: This is an 82-year-old white female who was admitted on 2016, presented to the emergency with frequency and chills and rigors, which progressively became worse during the day of the admission, with some nausea and vomiting along with chills. She came to the ED and evaluation showed UTI and possible signs of sepsis, so the patient was admitted for treatment and further evaluation. HOSPITAL COURSE: The patient was admitted and started on Rocephin IV and did well since then. The patient improved during the hospital course, and right now she is doing well. She did not have any chills since last night, and no dysuria or frequency anymore and feeling stronger. No nausea or vomiting since last night, and ambulating and eating and drinking. No fever and no chills, so the patient would like to go home, to follow up with her primary care physician. PHYSICAL EXAMINATION: Vital Signs: Temperature is 98.6, pulse is 74, respirations 16, blood pressure 132/47, and oxygen saturation is 90% on room air. Lungs: Clear to auscultation. No wheezing or rhonchi. Heart: Regular S1, S2. No murmur. No S3 was heard. Abdomen: Soft, nontender. Bowel sounds are positive. Extremities: No edema. LAB/IMAGING: White blood count is 15.4, hemoglobin 10.3, hematocrit count 31.3, and platelet count is 231. Sodium is 140, creatinine is 1.6, potassium 4.2, chloride is 107, CO2 is 24, BUN is 36. Glucose 111, magnesium is 1.4. Liver enzymes unremarkable. Albumin is 2.4. So the patient has no other signs of infection, except high white blood count, but this can be managed as an outpatient anyway and can be repeated as an outpatient to make sure white blood count is coming down. DISCHARGE INSTRUCTIONS/MEDICATIONS: The patient will go back to his regular medications, which would be: Metformin 1000 mg twice a day. Aspirin 325 once a day. Atorvastatin 10 mg daily. Colchicine 0.6 mg (it says twice a day but I think it is once a day). Clonidine 0.20 mg 3 times a day. Metoprolol 25 mg twice a day. Hydrochlorothiazide 25 mg daily. The patient will be on also Levaquin 500 mg daily for 7 more days. The patient will follow up with her primary care physician as an outpatient within a week. The patient will receive 2 grams of IV magnesium before discharge today, and then the patient will go home.
--- NOTE | 2017-04-05 12:52 | Progress Note ---
Subjective General pateint was doing fine till few mintues ago, felt weak dizzy and lost her balance had to sit down,feels nausea, and dose not feel good and became pale, her vitals stable, in last admission had Afib, will hold discharge and put her on telemetry and do EKG, send cbc and chem 7 troponin I
[2017-04-06 02:29] VITALS: BP 148/60
[2017-04-06 06:48] VITALS: BP 169/61
--- NOTE | 2017-04-06 08:27 | Progress Note ---
Subjective General Today feeling much better, no palpitation no nause no vomiting no dyspnea, no dizziness, ambulating fine and eating and drinking fine Physical Exam Vital Signs / I&Os Vital Signs Date Time Temp Pulse Resp B/P Pulse O2 O2 Flow FiO2 Ox Delivery Rate 04/06 0648 98.8 88 20 169/61 97 Room Air 2.0 04/06 0236 97 Room Air 04/06 0229 98.8 63 20 148/60 100 Nasal 2.0 Cannula 04/05 2248 98.6 73 20 151/69 100 Nasal 2.0 Cannula 04/05 1925 Room Air 04/05 1820 98.4 91 20 159/73 98 Room Air 04/05 1546 101 20 208/91 92 Room Air 04/05 1435 99.1 92 20 178/97 95 Room Air 04/05 1226 98.8 75 20 145/54 95 Room Air 0.0 04/05 1038 99.7 72 16 143/58 90 Room Air 0.0 I&O 04/06 0000 04/05 1600 04/05 0800 Intake Total 360 120 783 Output Total 965 575 800 Balance -605 -197 -17 General Appearance No acute distress Lungs Normal exam (few crackles in bases) Neck Supple Cardiovascular Regular rate and rhythm, Normal S1 and S2, No murmurs, gallops, rubs Abdomen Normal bowel sounds, Soft, No tenderness Extremities No edema Skin No Rashes Psych/Mental Status Mental status normal LAB Results Laboratory Tests 04/06 04/05 0540 1305 Chemistry Plasma Sodium (136 - 145 mmol/L) 143 141 Plasma Potassium (3.5 - 5.1 mmol/L) 3.9 3.8 Plasma Chloride (98 - 107 mmol/L) 109 106 CO2 (Enzymatic) (21 - 32 mmol/L) 25 23 BUN (7 - 18 mg/dL) 27 33 Creatinine (0.6 - 1.3 mg/dL) 1.4 1.6 Est GFR ( Amer) (mL/min) 46.15 39.56 Est GFR (Non-Af Amer) (mL/min) 38.08 32.64 Glucose (70 - 110 mg/dL) 138 127 Plasma Calcium (8.5 - 10.1 mg/dL) 8.1 8.0 Troponin (0.00 - 1.5 ng/mL) <0.05 Hematology WBC (4.5 - 11.5 K/uL) 10.0 13.8 RBC (4.00 - 5.20 M/uL) 3.50 3.73 Hgb (12.0 - 16.0 gm/dL) 10.5 11.1 Hct (36.0 - 46.0 %) 31.6 33.7 MCV (80 - 100 fL) 91 90 MCH (26 - 34 pg) 30 30 RDW (11.6 - 14.8 %) 13.7 14.2 Neut % (Auto) (50 - 75 %) 68.1 82.1 Lymph % (Auto) (25 - 40 %) 17.8 8.4 [place] % (Auto) (3 - 14 %) 10.2 6.9 Eos % (Auto) (0 - 4 %) 3.3 2.1 Baso % (Auto) (0 - 2 %) 0.6 0.5 Plt Count, EDTA (150 - 400 K/uL) 225 243 PUBS MCHC (31 - 37 g/dL) 33 33 Assessment and Plan Problem List 1. UTI Plan continue abx as planned in dishcarge, can go home now as planned yesterday 2. IRON DEFICIENCY ANEMIA Plan stable, needs monitoring as outpt 3. Atrial fibrillation Status Acute Onset Date 08/26/16 Plan EKG : Sinus rhythym with PAC.s
[2017-04-13] MEDS ORDERED: METOPROLOL SUCC25 MG PO (00:21)
[2017-04-13] MEDS ORDERED: GLIPIZIDE5 MG PO (00:22)
[2017-04-13] MEDS ORDERED: MAXZIDE-25 PO (00:22)
[2017-04-16] MEDS ORDERED: MAG6464 MG PO (12:40)
[2017-04-16] MEDS ORDERED: METFORMIN HCL500 MG PO (14:35)
== END 2017-04-06 09:40 | disposition home or self-care (01) ==
LOC: ED SRH 20:12 → TRANS SRH 04-04 01:51 → ACUTE2 SRH 04-04 01:51
PROVIDERS: ADMIT Pediatrics
PROC: 0T9B70Z Drainage of Bladder with Drainage Device, Via Natural or Artificial Opening (ICD-10-PCS; principal; 2017-04-04)
DX: N39.0 Urinary tract infection, site not specified (principal); B96.1 Klebsiella pneumoniae [K. pneumoniae] as the cause of diseases classified elsewhere; R11.2 Nausea with vomiting, unspecified; D50.9 Iron deficiency anemia, unspecified; E78.5 Hyperlipidemia, unspecified; E11.9 Type 2 diabetes mellitus without complications; Z79.84 Long term (current) use of oral hypoglycemic drugs
CPT/HCPCS: 29230; 29244; 29250; 29251; 29259; 29264; 83475; 85244; 90004; 90047; 90065; 90074; 90098; 90100; 90148; 90469; 90616; 91286; 92031; 92720; 93004; 95059

== ENCOUNTER 2017-04-12 22:47 | Emergency (ER) | payer OTHER ==
[~2017-04-12 22:47] MED LIST changes: +LEVAQUIN500 MG PO
[2017-04-13] MEDS ORDERED: METOPROLOL SUCC25 MG PO ×2 (00:21)
[2017-04-13] MEDS ORDERED: GLIPIZIDE5 MG PO ×2 (00:22)
[2017-04-13] MEDS ORDERED: MAXZIDE-25 PO ×2 (00:22)
--- NOTE | 2017-04-13 01:43 | ED CLINICAL REPORT ---
Clinical Report - Physicians/Mid Levels [facility] [address] [place] [address] 04/12/2017 22:47 Patient: MATHEW KUO Time Seen: 23:13. Arrived- By private vehicle. Historian- patient. HISTORY OF PRESENT ILLNESS Chief Complaint: URINARY FREQUENCY and WEAKNESS. This started about 1 month ago and is still present. It has been intermittent and waxing/waning. The patient has had fatigue and weakness. Recent medical care: The patient was seen recently at this facility. Seen for similar symptoms. Diagnosis: (Acute generalized weakness.). REVIEW OF SYSTEMS No chills, fever, sweats, calf pain or cough. No difficulty breathing, palpitations, abdominal pain, black stools or bloody stools. No constipation or diarrhea. She has had fatigue and dizziness. She has had mild, sharp, brief central chest pain (events occurring for several minutes each day. her last event was today at about 4 PM), currently gone. She has had moderate pedal edema involving the right and left leg (chronically). It has been similar to previous symptoms. She has had urgency, frequency, hesitancy and incontinence of urine. No painful urination. All systems otherwise negative, except as recorded above. PAST HISTORY PCP - Yulissa French. Problems: Atrial Fibrillation. Weakness. Healing Abscess. Abscess. Cellulitis. Sepsis. UTI - Urinary Tract Infection. Gallstone(s). Sebaceous Cyst. Vomiting. Hypercholesterolemia. Abrasion(s). Laceration. Tetanus Status. Diabetes Mellitus. Hypertension. Last Tetanus. Additional Surgeries: Cholecystectomy. Pylenital cyst drained. Medications: Atorvastatin Calcium Oral. Aspirin Oral 325mg twice daily. CloNIDine HCl Oral. Glipizide Oral. MetFORMIN HCl Oral 500 mg, 2x a day. Metoprolol Tartrate Oral. Triamterene-HCTZ Oral. Allergies: Percodan. Procardia. SOCIAL HISTORY Never smoker. No alcohol use. Is a local resident. Resides in a house. She lives with a family member. FAMILY HISTORY Diabetes in first-degree relative (mother); cancer in first-degree relative (father and a child). ADDITIONAL NOTES The nursing notes have been reviewed. PHYSICAL EXAM Vital Signs: 04/12/2017 22:50 BP: 151/47. HR: 81. RR: 28. O2 saturation: 95%. Temp: 98.5 F. Pain level now: 0/10. Have been reviewed. Appearance: Alert. Eyes: Pupils equal, round and reactive to light. ENT: Pharynx normal. Neck: Neck supple. CVS: Normal heart rate and rhythm. Heart sounds normal. Respiratory: No respiratory distress. Breath sounds normal. Abdomen: No visible injury. Soft and nontender. Bowel sounds normal. No organomegaly. No mass. Back: Normal inspection. Skin: Skin warm and dry. Normal skin color. Normal skin turgor. Extremities: Extremities exhibit normal ROM. No calf tenderness. No lower extremity edema. Neuro: No motor deficit. No sensory deficit. LABS, X-RAYS, AND EKG Laboratory Tests: UA-Culture if indicated: (EDWINA: 04/12/2017 23:35) ( [facility] 04/13/2017 00:09) Final results Test Result Flag Units (Reference) URINE COLOR YELLOW URINE APPEARANCE CLEAR URINE GLUCOSE NEGATIVE (NEGATIVE) URINE BILIRUBIN NEGATIVE (NEGATIVE) URINE KETONE NEGATIVE (NEGATIVE) URINE SPECIFIC GRAVITY 1.015 (1.010-1.030) URINE PH 5.5 (5.0-8.0) URINE PROTEIN 1+ (NEGATIVE) URINE UROBILINOGEN 0.2 EU/dL (0.2-1.0) URINE NITRITE NEGATIVE (NEGATIVE) URINE BLOOD NEGATIVE (NEGATIVE) URINE LEUK ESTERASE NEGATIVE (NEGATIVE) URINE RBC NONE SEEN rbc/hpf (0-1) URINE WBC NONE SEEN wbc/hpf (0-1) URINE EPITHELIAL CELLS 1-3 EPI/hpf (0-5) URINE BACTERIA NONE SEEN (NONE SEEN) URINE COMMENT CULT NOT INDICATED URINE CULTURES ARE SET-UP BASED ON THE FOLLOWING CRITERIA:POSITIVE NITRITEPOSITIVE LEUKOCYTE ESTERASEGREATER THAN 10 WHITE BLOOD CELLSMODERATE (2+) OR GREATER BACTERIA CBC w Diff: (EDWINA: 04/12/2017 23:52) ( [facility] 04/12/2017 23:59) Final results Test Result Flag Units (Reference) WHITE BLOOD COUNT 12.6 H K/uL (4.5-11.5) RED BLOOD COUNT 4.20 M/uL (4.00-5.20) HEMOGLOBIN 12.2 gm/dL (12.0-16.0) HEMATOCRIT 38.2 % (36.0-46.0) MEAN CELL VOLUME 91 fL (80-100) MEAN CORPUSCULAR HGB 29 pg (26-34) MEAN CORPUSCULAR HGB CONC 32 g/dL (31-37) RED CELL DISTRIBUTION WIDTH 15.0 H % (11.6-14.8) PLATELET COUNT 391 K/uL (150-400) LYMPH % 17.9 L % (25-40) MONO % 7.2 % (3-14) GRANULOCYTE % 74.9 (53-90) Lipase: (EDWINA: 04/12/2017 23:18) ( [facility] 04/12/2017 23:40) Final results Test Result Flag Units (Reference) LIPASE 150 U/L (73-393) AMYLASE 81 U/L (25-115) CPK 18 L U/L (24-260) TROPONIN I <0.05 L ng/mL (0.00-1.5) TROPONIN REFERENCE RANGE:<0.1 NEGATIVE0.1-1.5 INDETERMINANT>1.5 POSITIVE CMP: (EDWINA: 04/12/2017 23:18) ( [facility] 04/12/2017 23:40) Final results Test Result Flag Units (Reference) GLUCOSE 81 mg/dL (70-110) BUN 53 H mg/dL (7-18) CREATININE 1.9 H mg/dL (0.6-1.3) Estimated GFR 26.77 mL/min Estimated GFR- 32.44 mL/min Note: Persistent reduction over 3 months in eGFR<60 mL/min/1.73 m2 defines CKD. Patients with eGFR values>=60 mL/min/1.73 m2 may also have CKD if evidence ofpersistent proteinuria. Additional information may be foundat www.kidney.org. SODIUM 138 mmol/L (136-145) POTASSIUM 4.6 mmol/L (3.5-5.1) CHLORIDE 102 mmol/L (98-107) CARBON DIOXIDE 23 mmol/L (21-32) CALCIUM 8.3 L mg/dL (8.5-10.1) TOTAL PROTEIN 6.7 g/dL (6.4-8.2) ALBUMIN 3.1 L g/dL (3.3-5.0) BILIRUBIN, TOTAL 0.2 mg/dL (0.0-1.0) ALKALINE PHOSPHATASE 79 U/L (46-116) AST (SGOT) 16 U/L (15-37) ALT (SGPT) 21 U/L (12-78) . PROGRESS AND PROCEDURES Course of Care: Patient is stable. Patient/family counseled. Old medical records reviewed. Disposition: Discharged. Condition: stable. CLINICAL IMPRESSION Generalized weakness. INSTRUCTIONS Rest. Warnings: Further evaluation is necessary. GENERAL WARNINGS: Return or contact your physician immediately if your condition worsens or changes unexpectedly, if not improving as expected, or if other problems arise. Your Current Medications: CONTINUE TAKING THE FOLLOWING MEDICATIONS: Aspirin Oral : 325mg twice daily. Atorvastatin Calcium Oral. CloNIDine HCl Oral. Glipizide Oral. MetFORMIN HCl Oral : 500 mg 2x a day. Metoprolol Tartrate Oral. Triamterene-HCTZ Oral. Understanding of the discharge instructions verbalized by patient. Follow-up with: Yulissa Haas, Advanced Registered Nurse Practitioner, , [facility], [address] [place] [address] Follow up tomorrow. Call for the next available appointment. (Electronically signed by Rocky Crane MD 04/13/2017 21:57)
--- NOTE | 2017-04-13 01:43 | ED NURSING NOTES ---
Clinical Report - Nurses [facility] [address] [place] [address] 04/12/2017 22:47 Patient: MATHEW KUO TRIAGE Triage time 22:51. Acuity: LEVEL 3. Chief Complaint: ("light headed"). Alert. LUIZ COMA SCORE: Luiz Coma Scale: 15- eyes open spontaneously (4); best verbal response- oriented x 4 (5); best motor response- obeys commands (6). --22:58 Bernabe Chavarria R.N. 22:50 04/12/17. BP: 151/47. HR: 81. RR: 28 (regular, unlabored and rapid). O2 saturation: 95% on room air. Temp: 98.5 F (oral). Pain level now: 0/10. --22:58 Bernabe Chavarria R.N. Weight: 99.7 kg estimated. Height/Length: 66 inches Per Patient. BMI: 35.5. --22:57 Bernabe Chavarria R.N. Medications Aspirin Oral 325mg twice daily. CloNIDine HCl Oral. Glipizide Oral. MetFORMIN HCl Oral 500 mg, 2x a day. Metoprolol Tartrate Oral. Triamterene-HCTZ Oral. --22:54 Bernabe Chavarria R.N. Atorvastatin Calcium Oral. --22:54 Bernabe Chavarria R.N. The following entry was struck by Bernabe Chavarria R.N., 22:55 (04/12/17) Reason - wrong value. <<STRICKEN ENTRY-- Procardia Oral. --22:54 Bernabe Chavarria R.N. --END STRIKE>>. Allergies Percodan. --22:53 Bernabe Chavarria R.N. Procardia. --22:55 Bernabe Chavarria R.N. History Arrived by EMS. Historian: patient. Accompanied by (EMS). This started just prior to arrival. ( nausea). SOCIAL HX: Never smoker. No alcohol use or drug use. ABUSE ASSESSMENT: No report of abuse. NUTRITIONAL RISK ASSESSMENT: The nutritional risk assessment revealed no deficiencies. FUNCTIONAL ASSESSMENT: Functional assessment: no impairments noted. LEARNING NEEDS ASSESSMENT: The learning needs assessment revealed no barriers. --22:58 Bernabe Chavarria R.N. PROBLEMS: Weakness. Cellulitis. Sepsis. UTI - Urinary Tract Infection. Gallstone(s). Sebaceous Cyst. Hypercholesterolemia. Tetanus Status. Diabetes Mellitus. Hypertension. --22:54 Bernabe Chavarria R.N. ADDITIONAL SURGERIES: Cholecystectomy. Pylenital cyst drained. --22:54 Bernabe Chavarria R.N. Interventions ID band on patient. To treatment room. --22:58 Bernabe Chavarria R.N. PHYSICAL ASSESSMENT To room via stretcher. ( Patient states that "all day today" she felt "like I was going to pass out" and states that he daughter made her call the ambulance.). GENERAL / NEURO / PSYCH: Alert. Oriented X 4. Speech within normal limits. Does not appear in pain or anxious. RESPIRATORY: Respirations not labored. CVS: Normal sinus rhythm noted. Capillary refill less than 2 seconds. GI / : Abdomen soft and nontender. ( nausea). SKIN: Skin is warm and dry. --23:02 Bernabe Chavarria R.N. CVS: Cardiac rhythm: normal sinus rhythm. --23:02 Bernabe Chavarria R.N. NURSING PROGRESS NOTES Patient gowned. Head of bed elevated. Reassurance given. Two patient identifiers checked. Call light placed in reach. Side rails up x 1. Bed placed in lowest position. Brakes of bed on. Patient ready for evaluation- chart flagged. Patient waiting for evaluation. --23:02 Bernabe Chavarria R.N. 23:03 04/12/2017 Site #1 started prior to arrival by EMS via IV in the left with an 18g angiocath. Saline lock flushed with 10 mL saline. --23:03 Bernabe Chavarria R.N. Finger stick glucose: 91 mg/dL; performed by nurse. --23:07 Bernabe Chavarria R.N. EKG time: (2310). EKG was ordered, performed by a tech and shown to the ED physician. --23:22 Yeimi Pearce ( Patient placed on bedpan, attempting to provide a urine sample.). --23:22 Bernabe Chavarria R.N. 8 fr in/out catheterization. During procedure hand hygiene observed and sterile equipment and aseptic technique used. Return of 150 mL yellow-colored urine. It was a complicated placement. She tolerated procedure well. Patient ID band checked for patient name and birthdate: patient confirmed. Catheterized urine collected with return of yellow-colored urine; sample sent to lab. Specimen labeled in the presence of the patient. --23:42 Adelaide Pineda R.N. ( requested tech to perform orthostatic vitals). --00:09 Bernabe Chavarria R.N. 00:24 04/13/17. BP: 136/56 (large adult cuff) taken on the right arm, while lying. HR: 74. O2 saturation: 95% on room air. --00:26 Yeimi Pearce 00:15 04/13/17. BP: 152/54 (large adult cuff) taken on the right arm, while sitting. HR: 72. O2 saturation: 93% on room air. --00:28 Yeimi Pearce 00:20 04/13/17. BP: 143/68 (large adult cuff) taken on the right arm, while standing. HR: 100. O2 saturation: 97% on room air. --00:29 Yeimi Pearce ( pt. is using commode). --01:39 Yeimi Pearce 23:15 04/12/2017 Site #2 started via IV in the right antecubital space with an 20g angiocath, with aseptic technique and good blood return; one attempt. Blood drawn: rainbow set. Labeled in the presence of the patient and sent to the lab. Saline lock flushed with 10 mL saline. --02:16 Bernabe Chavarria R.N. DISPOSITION / DISCHARGE Condition at departure: stable. No learning barriers present. Discharge instructions provided and reviewed with the patient and family. Reviewed warnings. Treatments reviewed. Reviewed referrals for followup. Patient and family verbalized understanding. Written instructions provided in Setswana. The patient was discharged home and accompanied by family. She left the Emergency Department in a wheelchair and via private vehicle. Family member driving. --01:56 Bernabe Chavarria R.N. 01:55 04/13/17. BP: 142/47. HR: 87. RR: 18. O2 saturation: 95% on room air. --01:56 Bernabe Chavarria R.N. Departure time: 0200. --02:16 Bernabe Chavarria R.N. 02:00 04/13/2017 Site #1 removed upon discharge. Manual pressure and bandage applied. --02:16 Bernabe Chavarria R.N. 02:00 04/13/2017 Site #2 removed upon discharge. Manual pressure and bandage applied. --02:17 Bernabe Chavarria R.N. 02:00 04/13/17. Mcmanus-Lin pain scale: 0/10. --02:17 Bernabe Chavarria R.N. Locked/Released at 04/13/2017 2:17 by Bernabe Chavarria R.N.
--- NOTE | 2017-04-13 01:43 | ED ORDER SUMMARY ---
..... Patient: MATHEW KUO OrderSheet [facility] VisitID: [id number] [place] [address] 82y, F Registration Date/Time: 04/12/2017 ORDER SHEET Weight: 99.7 kg (estimated) Allergies: Percodan, Procardia GENERAL ORDERS: EKG - ER Stat (22:58 04/12/2017 DDavis R.N. per protocol) (Ack 23:08 CHagerty ER Car Wash Attendant Automatic) (23:19 CHagerty ER Car Wash Attendant Automatic) CBC w Diff Urgent (23:00 04/12/2017 DDavis R.N. per protocol) (Ack 23:08 CHagerty ER Car Wash Attendant Automatic) (23:55 DDavis R.N.) CMP Urgent (23:00 04/12/2017 DDavis R.N. per protocol) (Ack 23:08 CHagerty ER Car Wash Attendant Automatic) (23:55 DDavis R.N.) UA-Culture if indicated Urgent (23:00 04/12/2017 DDavis R.N. per protocol) (Ack 23:08 CHagerty ER Car Wash Attendant Automatic) (23:55 DDavis R.N.) Chest 1V Urgent (23:13 04/12/2017 Lurdes WILLIS) (Ack 23:16 CHagerty ER Car Wash Attendant Automatic) (23:54 Johnnie) Veterinary Pathologist (Continuous) (23:04/12/2017 Lurdes WILLIS) (Ack 23:16 CHagerty ER Car Wash Attendant Automatic) (23:21 DDavis R.N.) Amylase Urgent (23:14 04/12/2017 Lurdes WILLIS) (Ack 23:16 CHagerty ER Car Wash Attendant Automatic) (23:55 DDavis R.N.) Lipase Urgent (23:04/12/2017 Lurdes WILLIS) (Ack 23:16 CHagerty ER Car Wash Attendant Automatic) (23:55 DDavis R.N.) CPK Urgent (23:04/12/2017 Lurdes WILLIS) (Ack 23:16 CHagerty ER Car Wash Attendant Automatic) (23:55 DDavis R.N.) Troponin-I Urgent (23:04/12/2017 Lurdes WILLIS) (Ack 23:16 CHagerty ER Car Wash Attendant Automatic) (23:55 DDavis R.N.) Oxygen (2 L/min) (NC) (23:14 04/12/2017 Lurdes WILLIS) (Ack 23:16 CHagerty ER Car Wash Attendant Automatic) (23:21 DDavis R.N.) Pulse oximeter (23:14 04/12/2017 Lurdes WILLIS) (Ack 23:16 CHagerty ER Car Wash Attendant Automatic) (23:21 DDavis R.N.) Vitals - Orthostatic (23:14 04/12/2017 Lurdes WILLIS) (Ack 23:16 CHagerty ER Car Wash Attendant Automatic) (0:30 DDavis R.N.) MEDICATION ORDERS: IV FLUIDS: IV Saline Lock (23:00 04/12/2017 DDavis R.N. per protocol) (23:03 DDavis R.N.) IV Saline Lock (23:14 04/12/2017 Lurdes WILLIS) (Cancelled: Duplicate Order23:21 DDavis R.N.) ORDER SHEET NOTES: [Electronically signed by Bernabe Chavarria R.N. (02:17 04/13/2017)] [Electronically signed by Rocky Crane MD (21:57 04/13/2017)] [Electronically locked/signed by Bernabe Chavarria R.N. (02:17 04/13/2017)]
--- NOTE | 2017-04-13 01:43 | ED CLINICAL REPORT ---
Clinical Report - Physicians/Mid Levels [facility] [address] [place] [address] 04/12/2017 22:47 Patient: MATHEW KUO Time Seen: 23:13. Arrived- By private vehicle. Historian- patient. HISTORY OF PRESENT ILLNESS Chief Complaint: URINARY FREQUENCY and WEAKNESS. This started about 1 month ago and is still present. It has been intermittent and waxing/waning. The patient has had fatigue and weakness. Recent medical care: The patient was seen recently at this facility. Seen for similar symptoms. Diagnosis: (Acute generalized weakness.). REVIEW OF SYSTEMS No chills, fever, sweats, calf pain or cough. No difficulty breathing, palpitations, abdominal pain, black stools or bloody stools. No constipation or diarrhea. She has had fatigue and dizziness. She has had mild, sharp, brief central chest pain (events occurring for several minutes each day. her last event was today at about 4 PM), currently gone. She has had moderate pedal edema involving the right and left leg (chronically). It has been similar to previous symptoms. She has had urgency, frequency, hesitancy and incontinence of urine. No painful urination. All systems otherwise negative, except as recorded above. PAST HISTORY PCP - Yulissa French. Problems: Atrial Fibrillation. Weakness. Healing Abscess. Abscess. Cellulitis. Sepsis. UTI - Urinary Tract Infection. Gallstone(s). Sebaceous Cyst. Vomiting. Hypercholesterolemia. Abrasion(s). Laceration. Tetanus Status. Diabetes Mellitus. Hypertension. Last Tetanus. Additional Surgeries: Cholecystectomy. Pylenital cyst drained. Medications: Atorvastatin Calcium Oral. Aspirin Oral 325mg twice daily. CloNIDine HCl Oral. Glipizide Oral. MetFORMIN HCl Oral 500 mg, 2x a day. Metoprolol Tartrate Oral. Triamterene-HCTZ Oral. Allergies: Percodan. Procardia. SOCIAL HISTORY Never smoker. No alcohol use. Is a local resident. Resides in a house. She lives with a family member. FAMILY HISTORY Diabetes in first-degree relative (mother); cancer in first-degree relative (father and a child). ADDITIONAL NOTES The nursing notes have been reviewed. PHYSICAL EXAM Vital Signs: 04/12/2017 22:50 BP: 151/47. HR: 81. RR: 28. O2 saturation: 95%. Temp: 98.5 F. Pain level now: 0/10. Have been reviewed. Appearance: Alert. Eyes: Pupils equal, round and reactive to light. ENT: Pharynx normal. Neck: Neck supple. CVS: Normal heart rate and rhythm. Heart sounds normal. Respiratory: No respiratory distress. Breath sounds normal. Abdomen: No visible injury. Soft and nontender. Bowel sounds normal. No organomegaly. No mass. Back: Normal inspection. Skin: Skin warm and dry. Normal skin color. Normal skin turgor. Extremities: Extremities exhibit normal ROM. No calf tenderness. No lower extremity edema. Neuro: No motor deficit. No sensory deficit. LABS, X-RAYS, AND EKG Laboratory Tests: UA-Culture if indicated: (EDWINA: 04/12/2017 23:35) ( [facility] 04/13/2017 00:09) Final results Test Result Flag Units (Reference) URINE COLOR YELLOW URINE APPEARANCE CLEAR URINE GLUCOSE NEGATIVE (NEGATIVE) URINE BILIRUBIN NEGATIVE (NEGATIVE) URINE KETONE NEGATIVE (NEGATIVE) URINE SPECIFIC GRAVITY 1.015 (1.010-1.030) URINE PH 5.5 (5.0-8.0) URINE PROTEIN 1+ (NEGATIVE) URINE UROBILINOGEN 0.2 EU/dL (0.2-1.0) URINE NITRITE NEGATIVE (NEGATIVE) URINE BLOOD NEGATIVE (NEGATIVE) URINE LEUK ESTERASE NEGATIVE (NEGATIVE) URINE RBC NONE SEEN rbc/hpf (0-1) URINE WBC NONE SEEN wbc/hpf (0-1) URINE EPITHELIAL CELLS 1-3 EPI/hpf (0-5) URINE BACTERIA NONE SEEN (NONE SEEN) URINE COMMENT CULT NOT INDICATED URINE CULTURES ARE SET-UP BASED ON THE FOLLOWING CRITERIA:POSITIVE NITRITEPOSITIVE LEUKOCYTE ESTERASEGREATER THAN 10 WHITE BLOOD CELLSMODERATE (2+) OR GREATER BACTERIA CBC w Diff: (EDWINA: 04/12/2017 23:52) ( [facility] 04/12/2017 23:59) Final results Test Result Flag Units (Reference) WHITE BLOOD COUNT 12.6 H K/uL (4.5-11.5) RED BLOOD COUNT 4.20 M/uL (4.00-5.20) HEMOGLOBIN 12.2 gm/dL (12.0-16.0) HEMATOCRIT 38.2 % (36.0-46.0) MEAN CELL VOLUME 91 fL (80-100) MEAN CORPUSCULAR HGB 29 pg (26-34) MEAN CORPUSCULAR HGB CONC 32 g/dL (31-37) RED CELL DISTRIBUTION WIDTH 15.0 H % (11.6-14.8) PLATELET COUNT 391 K/uL (150-400) LYMPH % 17.9 L % (25-40) MONO % 7.2 % (3-14) GRANULOCYTE % 74.9 (53-90) Lipase: (EDWINA: 04/12/2017 23:18) ( [facility] 04/12/2017 23:40) Final results Test Result Flag Units (Reference) LIPASE 150 U/L (73-393) AMYLASE 81 U/L (25-115) CPK 18 L U/L (24-260) TROPONIN I <0.05 L ng/mL (0.00-1.5) TROPONIN REFERENCE RANGE:<0.1 NEGATIVE0.1-1.5 INDETERMINANT>1.5 POSITIVE CMP: (EDWINA: 04/12/2017 23:18) ( [facility] 04/12/2017 23:40) Final results Test Result Flag Units (Reference) GLUCOSE 81 mg/dL (70-110) BUN 53 H mg/dL (7-18) CREATININE 1.9 H mg/dL (0.6-1.3) Estimated GFR 26.77 mL/min Estimated GFR- 32.44 mL/min Note: Persistent reduction over 3 months in eGFR<60 mL/min/1.73 m2 defines CKD. Patients with eGFR values>=60 mL/min/1.73 m2 may also have CKD if evidence ofpersistent proteinuria. Additional information may be foundat www.kidney.org. SODIUM 138 mmol/L (136-145) POTASSIUM 4.6 mmol/L (3.5-5.1) CHLORIDE 102 mmol/L (98-107) CARBON DIOXIDE 23 mmol/L (21-32) CALCIUM 8.3 L mg/dL (8.5-10.1) TOTAL PROTEIN 6.7 g/dL (6.4-8.2) ALBUMIN 3.1 L g/dL (3.3-5.0) BILIRUBIN, TOTAL 0.2 mg/dL (0.0-1.0) ALKALINE PHOSPHATASE 79 U/L (46-116) AST (SGOT) 16 U/L (15-37) ALT (SGPT) 21 U/L (12-78) . PROGRESS AND PROCEDURES Course of Care: Patient is stable. Patient/family counseled. Old medical records reviewed. Disposition: Discharged. Condition: stable. CLINICAL IMPRESSION Generalized weakness. INSTRUCTIONS Rest. Warnings: Further evaluation is necessary. GENERAL WARNINGS: Return or contact your physician immediately if your condition worsens or changes unexpectedly, if not improving as expected, or if other problems arise. Your Current Medications: CONTINUE TAKING THE FOLLOWING MEDICATIONS: Aspirin Oral : 325mg twice daily. Atorvastatin Calcium Oral. CloNIDine HCl Oral. Glipizide Oral. MetFORMIN HCl Oral : 500 mg 2x a day. Metoprolol Tartrate Oral. Triamterene-HCTZ Oral. Understanding of the discharge instructions verbalized by patient. Follow-up with: Yulissa Haas, Advanced Registered Nurse Practitioner, , [facility], [address] [place] [address] Follow up tomorrow. Call for the next available appointment. (Electronically signed by Rocky Crane MD 04/13/2017 21:57)
--- NOTE | 2017-04-13 01:43 | ED ORDER SUMMARY ---
..... Patient: MATHEW KUO OrderSheet [facility] VisitID: [id number] [place] [address] 82y, F Registration Date/Time: 04/12/2017 ORDER SHEET Weight: 99.7 kg (estimated) Allergies: Percodan, Procardia GENERAL ORDERS: EKG - ER Stat (22:58 04/12/2017 DDavis R.N. per protocol) (Ack 23:08 CHagerty ER Hand Splitter) (23:19 CHagerty ER Hand Splitter) CBC w Diff Urgent (23:00 04/12/2017 DDavis R.N. per protocol) (Ack 23:08 CHagerty ER Hand Splitter) (23:55 DDavis R.N.) CMP Urgent (23:00 04/12/2017 DDavis R.N. per protocol) (Ack 23:08 CHagerty ER Hand Splitter) (23:55 DDavis R.N.) UA-Culture if indicated Urgent (23:00 04/12/2017 DDavis R.N. per protocol) (Ack 23:08 CHagerty ER Hand Splitter) (23:55 DDavis R.N.) Chest 1V Urgent (23:13 04/12/2017 Lurdes WILLIS) (Ack 23:16 CHagerty ER Hand Splitter) (23:54 Johnnie) Larriman Helper (Continuous) (23:04/12/2017 Lurdes WILLIS) (Ack 23:16 CHagerty ER Hand Splitter) (23:21 DDavis R.N.) Amylase Urgent (23:14 04/12/2017 Lurdes WILLIS) (Ack 23:16 CHagerty ER Hand Splitter) (23:55 DDavis R.N.) Lipase Urgent (23:04/12/2017 Lurdes WILLIS) (Ack 23:16 CHagerty ER Hand Splitter) (23:55 DDavis R.N.) CPK Urgent (23:04/12/2017 Lurdes WILLIS) (Ack 23:16 CHagerty ER Hand Splitter) (23:55 DDavis R.N.) Troponin-I Urgent (23:04/12/2017 Lurdes WILLIS) (Ack 23:16 CHagerty ER Hand Splitter) (23:55 DDavis R.N.) Oxygen (2 L/min) (NC) (23:14 04/12/2017 Lurdes WILLIS) (Ack 23:16 CHagerty ER Hand Splitter) (23:21 DDavis R.N.) Pulse oximeter (23:14 04/12/2017 Lurdes WILLIS) (Ack 23:16 CHagerty ER Hand Splitter) (23:21 DDavis R.N.) Vitals - Orthostatic (23:14 04/12/2017 Lurdes WILLIS) (Ack 23:16 CHagerty ER Hand Splitter) (0:30 DDavis R.N.) MEDICATION ORDERS: IV FLUIDS: IV Saline Lock (23:00 04/12/2017 DDavis R.N. per protocol) (23:03 DDavis R.N.) IV Saline Lock (23:14 04/12/2017 Lurdes WILLIS) (Cancelled: Duplicate Order23:21 DDavis R.N.) ORDER SHEET NOTES: [Electronically signed by Bernabe Chavarria R.N. (02:17 04/13/2017)] [Electronically signed by Rocky Crane MD (21:57 04/13/2017)] [Electronically locked/signed by Bernabe Chavarria R.N. (02:17 04/13/2017)]
--- NOTE | 2017-04-13 06:39 | DIAGNOSTIC IMAGING REPORT ---
PROCEDURE: XR CHEST 1 VIEW INDICATION: NEAR SYNCOPE TECHNIQUE: Portable AP view 11:49 p.m. COMPARISON: Chest x-ray 04/03/2017 FINDINGS: Lungs are clear. Heart size, mediastinum and pulmonary vascularity are normal. Thorax is normal. No significant interval change. IMPRESSION: 1. Negative chest
--- NOTE | 2017-04-13 21:57 | ED MED RECONCILIATION SUMMARY ---
Patient: MATHEW KUO Medication Reconciliation Report [facility] VisitID: [id number] [address] [place] [address] 82y, F Registration Date/Time: 04/12/2017 Weight: 99.7 kg Height/Length: 66 in. BMI: 35.5 ALLERGIES: Percodan, Procardia The patient's Home Medications are listed below: CONTINUE TAKING THE FOLLOWING MEDICATIONS: Aspirin Oral 325mg twice daily Atorvastatin Calcium Oral CloNIDine HCl Oral Glipizide Oral MetFORMIN HCl Oral 500 mg, 2x a day Metoprolol Tartrate Oral Triamterene-HCTZ Oral The source(s) of the original Home Medication information: Not obtained. The following Medications were given to the patient in the Emergency Department: None. The following Medications were prescribed to the patient: None.
--- NOTE | 2017-04-13 21:57 | ED DISCHARGE INSTRUCTIONS ---
Patient: MATHEW KUO General Instructions [facility] VisitID: [id number] [place] [address] 82y, F Registration Date/Time: 04/12/2017 Generalized weakness. INSTRUCTIONS Rest. Warnings: Further evaluation is necessary. GENERAL WARNINGS: Return or contact your physician immediately if your condition worsens or changes unexpectedly, if not improving as expected, or if other problems arise. Your Current Medications: CONTINUE TAKING THE FOLLOWING MEDICATIONS: Aspirin Oral : 325mg twice daily. Atorvastatin Calcium Oral. CloNIDine HCl Oral. Glipizide Oral. MetFORMIN HCl Oral : 500 mg 2x a day. Metoprolol Tartrate Oral. Triamterene-HCTZ Oral. Understanding of the discharge instructions verbalized by patient. Follow-up with: Yulissa Haas, Advanced Registered Nurse Practitioner, , [facility], [address] [place] [address] Follow up tomorrow. Call for the next available appointment. ADDITIONAL INFORMATION Weakness [Uncertain Cause] Based on your exam today, the exact cause of your weakness is not certain. However, your weakness does not seem to be a sign of a serious illness at this time. Sometimes the signs of a serious illness take more time to appear. Therefore, please watch for the warning signs listed below. Home Care: 1) Rest at home today. Do not over-exert yourself. 2) Take your medicine as prescribed. 3) For the next few days, drink extra fluids (unless your doctor wants you to restrict fluids for other reasons). Do not skip meals. Follow Up with your doctor or as advised if you are not starting to feel better within TWO days. Get Prompt Medical Attention if any of the following occur: Worsening of your symptoms Chest, arm, neck, jaw or upper back pain Dizziness or fainting Trouble breathing Unable to eat or drink normal amounts Nausea, frequent vomiting, frequent diarrhea Abdominal pain Numbness or weakness of the face, one arm or one leg Slurred speech, confusion, trouble speaking, walking or seeing Blood in vomit or stool (black or red color) Fever of 100.4 F (38 C) or higher, or as directed by your healthcare provider You have been given the following additional information: Weakness, Unk Cause Rest. (Electronically signed by Rocky Crane MD 04/13/2017 21:57)
--- NOTE | 2017-04-13 21:57 | ED MAR SUMMARY ---
..... Medication Administration Record [facility] [address] [place], [place] [id number] Patient: MATHEW KUO Visit ID: [id number] 82y, F Weight: 99.7 kg Height/Length: 66 in BMI: 35.5 ALLERGIES: Percodan, Procardia
--- NOTE | 2017-04-13 21:57 | ED MAR SUMMARY ---
..... Medication Administration Record [address] [place], [place] [id number] Patient: MATHEW KUO Visit ID: [id number] 82y, F Weight: 99.7 kg Height/Length: 66 in BMI: 35.5 ALLERGIES: Percodan, Procardia
--- NOTE | 2017-04-13 21:57 | ED DISCHARGE INSTRUCTIONS ---
Patient: MATHEW KUO General Instructions [facility] VisitID: [id number] [place] [address] 82y, F Registration Date/Time: 04/12/2017 Generalized weakness. INSTRUCTIONS Rest. Warnings: Further evaluation is necessary. GENERAL WARNINGS: Return or contact your physician immediately if your condition worsens or changes unexpectedly, if not improving as expected, or if other problems arise. Your Current Medications: CONTINUE TAKING THE FOLLOWING MEDICATIONS: Aspirin Oral : 325mg twice daily. Atorvastatin Calcium Oral. CloNIDine HCl Oral. Glipizide Oral. MetFORMIN HCl Oral : 500 mg 2x a day. Metoprolol Tartrate Oral. Triamterene-HCTZ Oral. Understanding of the discharge instructions verbalized by patient. Follow-up with: Yulissa Haas, Advanced Registered Nurse Practitioner, , [facility], [address] [place] [address] Follow up tomorrow. Call for the next available appointment. ADDITIONAL INFORMATION Weakness [Uncertain Cause] Based on your exam today, the exact cause of your weakness is not certain. However, your weakness does not seem to be a sign of a serious illness at this time. Sometimes the signs of a serious illness take more time to appear. Therefore, please watch for the warning signs listed below. Home Care: 1) Rest at home today. Do not over-exert yourself. 2) Take your medicine as prescribed. 3) For the next few days, drink extra fluids (unless your doctor wants you to restrict fluids for other reasons). Do not skip meals. Follow Up with your doctor or as advised if you are not starting to feel better within TWO days. Get Prompt Medical Attention if any of the following occur: Worsening of your symptoms Chest, arm, neck, jaw or upper back pain Dizziness or fainting Trouble breathing Unable to eat or drink normal amounts Nausea, frequent vomiting, frequent diarrhea Abdominal pain Numbness or weakness of the face, one arm or one leg Slurred speech, confusion, trouble speaking, walking or seeing Blood in vomit or stool (black or red color) Fever of 100.4 F (38 C) or higher, or as directed by your healthcare provider You have been given the following additional information: Weakness, Unk Cause Rest. (Electronically signed by Rocky Crane MD 04/13/2017 21:57)
--- NOTE | 2017-04-13 21:57 | ED MED RECONCILIATION SUMMARY ---
Patient: MATEHW KUO Medication Reconciliation Report [facility] VisitID: [id number] [address] [place] [address] 82y, F Registration Date/Time: 04/12/2017 Weight: 99.7 kg Height/Length: 66 in. BMI: 35.5 ALLERGIES: Percodan, Procardia The patient's Home Medications are listed below: CONTINUE TAKING THE FOLLOWING MEDICATIONS: Aspirin Oral 325mg twice daily Atorvastatin Calcium Oral CloNIDine HCl Oral Glipizide Oral MetFORMIN HCl Oral 500 mg, 2x a day Metoprolol Tartrate Oral Triamterene-HCTZ Oral The source(s) of the original Home Medication information: Not obtained. The following Medications were given to the patient in the Emergency Department: None. The following Medications were prescribed to the patient: None.
== END 2017-04-13 02:00 | disposition home or self-care (01) ==
LOC: ED SRH 22:47
DX: R53.1 Weakness (principal); R35.0 Frequency of micturition; R07.9 Chest pain, unspecified; I48.91 Unspecified atrial fibrillation; E11.9 Type 2 diabetes mellitus without complications; Z79.84 Long term (current) use of oral hypoglycemic drugs; E78.00 Pure hypercholesterolemia, unspecified; I10 Essential (primary) hypertension; Z79.82 Long term (current) use of aspirin; Z79.899 Other long term (current) drug therapy
CPT/HCPCS: 81460; 90004; 90098; 90100; 90616; 92235; 92530; 92610; 95059

== ENCOUNTER 2017-04-14 11:30 | Observation (INO) | payer OTHER ==
[~2017-04-14] VITALS: Ht 167.6 cm; Wt 94.4 kg
[~2017-04-14 11:30] MED LIST changes: +GLIPIZIDE5 MG PO; +MAXZIDE-25 PO; +METOPROLOL SUCC25 MG PO
--- NOTE | 2017-04-14 12:49 | DIAGNOSTIC IMAGING REPORT ---
PROCEDURE: XR CHEST 1 VIEW INDICATION: CHEST PAIN TECHNIQUE: Portable AP view 12:37 P COMPARISON: Chest 04/12/2017 FINDINGS: Lungs are clear. Heart size, mediastinum and pulmonary vascularity are normal. Thorax is normal. No significant interval change. IMPRESSION: 1. Negative chest
--- NOTE | 2017-04-14 15:55 | ED ORDER SUMMARY ---
..... Patient: MATHEW KUO OrderSheet [facility] VisitID: [id number] [address] [place] [address] 82y, F Registration Date/Time: 04/14/2017 ORDER SHEET Weight: 111.1 kg (stated) Allergies: Percodan, Procardia GENERAL ORDERS: Chest 1V Urgent (12:28 04/14/2017 Trevor WILLIS) (Ack 12:30 KHoerner) (13:39 LSullivan R.N.) Sinker Puller (Continuous) (12:04/14/2017 Trevor WILLIS) (12:46 TBergley) Cardiac Panel Stat (12:04/14/2017 Trevor WILLIS) (Ack 12:30 KHoerner) (12:56 LSullivan R.N.) BNP Urgent (12:04/14/2017 Trevor WILLIS) (Ack 12:30 KHoerner) (12:56 LSullivan R.N.) UA-Culture if indicated Urgent (12:04/14/2017 Trevor WILLIS) (Ack 12:30 VERNAoerner) (13:35 KHoerner) Pulse oximeter (12:04/14/2017 Trevor WILLIS) (12:46 TBergley) EKG - ER Stat (12:04/14/2017 Trevor WILLIS) (12:38 TBergley) POC Glucose (12:04/14/2017 Trevor WILLIS) (12:29 TBergley) - (CATH UA IF NOT ALREADY DONE) (13:43 04/14/2017 Trevor WILLIS) (14:18 TBergley) POC Glucose (15:16 04/14/2017 Trevor WILLIS) (16:44 KHoerner) PT with INR Urgent (16:29 04/14/2017 Trevor WILLIS) (Ack 16:44 KHoerner) (17:49 LSullivan R.N.) MEDICATION ORDERS: Clonidine PO 0.3 mg (NOW) (17:45 04/14/2017 LSullivan R.N. verbal order read back to Trevor WILLIS) (17:46 LSullivan R.N.) IV FLUIDS: IV Saline Lock (12:26 04/14/2017 LSullivan R.N. verbal order read back to Trevor WILLIS) (12:26 LSullivan R.N.) IV Saline Lock (12:29 04/14/2017 Trevor WILLIS) (Ack 13:39 LSullivan R.N.) (Cancelled: Duplicate Order19:10 LSullivan R.N.) D-50 IV 25 gm (NOW) (15:34 04/14/2017 Trevor WILLIS) (16:46 LSullivan R.N.) IV 0.45% NS with Dextrose 50 gm: initial bolus none -, then 150 mL/hr for 2h (NOW); Urgent (15:36 04/14/2017 Trevor WILLIS) (17:44 LSullivan R.N.) ORDER SHEET NOTES: [Electronically signed by Katharine Garcia R.N. (19:10 04/14/2017)] [Electronically signed by Darin Abdi MD (22:34 04/14/2017)] [Electronically locked/signed by Katharine Garcia R.N. (19:10 04/14/2017)]
--- NOTE | 2017-04-14 15:55 | ED ORDER SUMMARY ---
..... Patient: MATHEW KUO OrderSheet [facility] VisitID: [id number] [address] [place] [address] 82y, F Registration Date/Time: 04/14/2017 ORDER SHEET Weight: 111.1 kg (stated) Allergies: Percodan, Procardia GENERAL ORDERS: Chest 1V Urgent (12:28 04/14/2017 Trevor WILLIS) (Ack 12:30 KHoerner) (13:39 LSullivan R.N.) Assistant Manager Trainee (Continuous) (12:04/14/2017 Trevor WILLIS) (12:46 TBergley) Cardiac Panel Stat (12:04/14/2017 Trevor WILLIS) (Ack 12:30 KHoerner) (12:56 LSullivan R.N.) BNP Urgent (12:04/14/2017 Trevor WILLIS) (Ack 12:30 KHoerner) (12:56 LSullivan R.N.) UA-Culture if indicated Urgent (12:04/14/2017 Trevor WILLIS) (Ack 12:30 VERNAoerner) (13:35 KHoerner) Pulse oximeter (12:04/14/2017 Trevor WILLIS) (12:46 TBergley) EKG - ER Stat (12:04/14/2017 Trevor WILLIS) (12:38 TBergley) POC Glucose (12:04/14/2017 Trevor WILLIS) (12:29 TBergley) - (CATH UA IF NOT ALREADY DONE) (13:43 04/14/2017 Trevor WILLIS) (14:18 TBergley) POC Glucose (15:16 04/14/2017 Trevor WILLIS) (16:44 KHoerner) PT with INR Urgent (16:29 04/14/2017 Trevor WILLIS) (Ack 16:44 KHoerner) (17:49 LSullivan R.N.) MEDICATION ORDERS: Clonidine PO 0.3 mg (NOW) (17:45 04/14/2017 LSullivan R.N. verbal order read back to Trevor WILLIS) (17:46 LSullivan R.N.) IV FLUIDS: IV Saline Lock (12:26 04/14/2017 LSullivan R.N. verbal order read back to Trevor WILLIS) (12:26 LSullivan R.N.) IV Saline Lock (12:29 04/14/2017 Trevor WILLIS) (Ack 13:39 LSullivan R.N.) (Cancelled: Duplicate Order19:10 LSullivan R.N.) D-50 IV 25 gm (NOW) (15:34 04/14/2017 Trevor WILLIS) (16:46 LSullivan R.N.) IV 0.45% NS with Dextrose 50 gm: initial bolus none -, then 150 mL/hr for 2h (NOW); Urgent (15:36 04/14/2017 Trevor WILLIS) (17:44 LSullivan R.N.) ORDER SHEET NOTES: [Electronically signed by Katharine Garcia R.N. (19:10 04/14/2017)] [Electronically signed by Darin Abdi MD (22:34 04/14/2017)] [Electronically locked/signed by Katharine Garcia R.N. (19:10 04/14/2017)]
--- NOTE | 2017-04-14 15:55 | ED CLINICAL REPORT ---
Clinical Report - Physicians/Mid Levels [facility] [address] [place] [address] 04/14/2017 11:30 Patient: MATHEW KUO Time Seen: 12:23. Historian- patient. HISTORY OF PRESENT ILLNESS Chief Complaint: Weakness. Diaphoresis and Low Blood Sugar. At its maximum, severity described as moderate. When seen in the E.D., severity described as moderate. This started several days ago and is still present. No loss of appetite. She has had fatigue and weakness. No decreased urine output. (Ms Kuo has recently had recurrent episodes at home where she felt weak, clammy and shakey, At home she low BS 52.). Recent medical care: The patient was seen recently by a health care provider. ( Ms Kuo was recently admitted for a UTI. Following discharge pt was seen in the ED with symptoms similar to today, Then her UA and BS were normal). REVIEW OF SYSTEMS No fever, sore throat or throat, cough or difficulty breathing. No chest pain, abdominal pain, nausea, vomiting or diarrhea. No difficulty with urination, fever or eye irritation. PAST HISTORY [facility][Note 3] ([place] now) PROBLEMS: Atrial Fibrillation. Weakness. Healing Abscess. Abscess. Cellulitis. Sepsis. UTI - Urinary Tract Infection. Gallstone(s). Sebaceous Cyst. Vomiting. Hypercholesterolemia. Abrasion(s). Laceration. Diabetes Mellitus. Hypertension. ADDITIONAL SURGERIES: Cholecystectomy. Pylenital cyst drained. Medications: Aspirin Oral 325mg twice daily. Atorvastatin Calcium Oral. CloNIDine HCl Oral. Glipizide Oral. MetFORMIN HCl Oral 500 mg, 2x a day. Metoprolol Tartrate Oral. Triamterene-HCTZ Oral. Allergies: Percodan. Procardia. SOCIAL HISTORY Never smoker. ADDITIONAL NOTES The nursing notes have been reviewed. PHYSICAL EXAM Vital Signs: 04/14/2017 18:57 BP: 125/80. HR: 76. RR: 18. O2 saturation: 94%. Pain level now: 10. 04/14/2017 18:00 BP: 165/82. 04/14/2017 17:30 BP: 208/74. HR: 99. O2 saturation: 94%. 04/14/2017 16:30 BP: 170/76. HR: 103. RR: 18. O2 saturation: 94%. Pain level now: 3/10. 04/14/2017 14:30 BP: 145/40. HR: 90. RR: 18. O2 saturation: 99%. 04/14/2017 12:09 BP: 164/73. HR: 69. RR: 18. O2 saturation: 97%. Temp: 97.8 F. Pain level now: 0/10. Appearance: Alert. No acute distress. Eyes: Eyes normal inspection. ENT: Pharynx normal. CVS: Normal heart rate and rhythm. Heart sounds normal. Respiratory: No respiratory distress. Breath sounds normal. Abdomen: No visible injury. Soft and nontender. Bowel sounds normal. Skin: Skin warm. Normal skin color. Extremities: Extremities exhibit normal ROM. No lower extremity edema. Neuro: No alteration in mental status. LABS, X-RAYS, AND EKG Chest X-ray: (PROCEDURE: XR CHEST 1 VIEW INDICATION: CHEST PAIN TECHNIQUE: Portable AP view 12:37 P COMPARISON: Chest 04/12/2017 FINDINGS: Lungs are clear. Heart size, mediastinum and pulmonary vascularity are normal. Thorax is normal. No significant interval change. IMPRESSION: 1. Negative chest Electronically Final signed by:Thomas Orta MD 04/14/2017 12:49:41 PM). The X-rays were interpreted by the radiologist and contemporaneously by me. Laboratory Tests: UA-Culture if indicated: (EDWINA: 04/14/2017 13:27) ( MsgRcvd 04/14/2017 14:01) Final results Test Result Flag Units (Reference) URINE COLOR YELLOW URINE APPEARANCE SL CLOUDY URINE GLUCOSE NEGATIVE (NEGATIVE) URINE BILIRUBIN NEGATIVE (NEGATIVE) URINE KETONE NEGATIVE (NEGATIVE) URINE SPECIFIC GRAVITY 1.020 (1.010-1.030) URINE PH 6.0 (5.0-8.0) URINE PROTEIN 1+ (NEGATIVE) URINE UROBILINOGEN 0.2 EU/dL (0.2-1.0) URINE NITRITE NEGATIVE (NEGATIVE) URINE BLOOD NEGATIVE (NEGATIVE) URINE LEUK ESTERASE NEGATIVE (NEGATIVE) URINE RBC NONE SEEN rbc/hpf (0-1) URINE WBC NONE SEEN wbc/hpf (0-1) URINE EPITHELIAL CELLS NONE SEEN EPI/hpf (0-5) URINE BACTERIA NONE SEEN (NONE SEEN) URINE COMMENT CULT NOT INDICATED 2+ AMORPHOUS CRYSTALSURINE CULTURES ARE SET-UP BASED ON THE FOLLOWING CRITERIA:POSITIVE NITRITEPOSITIVE LEUKOCYTE ESTERASEGREATER THAN 10 WHITE BLOOD CELLSMODERATE (2+) OR GREATER BACTERIA CBC w Diff: (EDWINA: 04/14/2017 12:20) ( [facility] 04/14/2017 13:00) Final results Test Result Flag Units (Reference) WHITE BLOOD COUNT 15.8 H K/uL (4.5-11.5) RED BLOOD COUNT 4.01 M/uL (4.00-5.20) HEMOGLOBIN 12.0 gm/dL (12.0-16.0) HEMATOCRIT 36.3 % (36.0-46.0) MEAN CELL VOLUME 91 fL (80-100) MEAN CORPUSCULAR HGB 30 pg (26-34) MEAN CORPUSCULAR HGB CONC 33 g/dL (31-37) RED CELL DISTRIBUTION WIDTH 14.4 % (11.6-14.8) PLATELET COUNT 390 K/uL (150-400) NEUTROPHIL % 83.0 H % (50-75) LYMPH % 11.8 L % (25-40) MONO % 4.6 % (3-14) EOSINOPHIL % 0.4 % (0-4) BASOPHIL % 0.2 % (0-2) BNP: (EDWINA: 04/14/2017 12:20) ( [facility] 04/14/2017 13:27) Final results Test Result Flag Units (Reference) B-TYPE NATRIURETIC PEPTIDE 54.8 pg/ml (5-100) CHEM 13 PANEL: (EDWINA: 04/14/2017 12:20) ( [facility] 04/14/2017 12:59) Final results Test Result Flag Units (Reference) GLUCOSE 83 mg/dL (70-110) BUN 51 H mg/dL (7-18) CREATININE 2.0 H mg/dL (0.6-1.3) Estimated GFR 25.23 mL/min Estimated GFR- 30.58 mL/min Note: Persistent reduction over 3 months in eGFR<60 mL/min/1.73 m2 defines CKD. Patients with eGFR values>=60 mL/min/1.73 m2 may also have CKD if evidence ofpersistent proteinuria. Additional information may be foundat [email or web address].org. SODIUM 139 mmol/L (136-145) POTASSIUM 4.9 mmol/L (3.5-5.1) CHLORIDE 103 mmol/L (98-107) CARBON DIOXIDE 23 mmol/L (21-32) CALCIUM 8.7 mg/dL (8.5-10.1) TOTAL PROTEIN 7.5 g/dL (6.4-8.2) ALBUMIN 3.1 L g/dL (3.3-5.0) BILIRUBIN, TOTAL 0.3 mg/dL (0.0-1.0) ALKALINE PHOSPHATASE 74 U/L (46-116) AST (SGOT) 20 U/L (15-37) ALT (SGPT) 20 U/L (12-78) MAGNESIUM 1.6 L mg/dL (1.8-2.4) CPK 24 U/L (24-260) TROPONIN I <0.05 ng/mL (0.00-1.5) TROPONIN REFERENCE RANGE:<0.1 NEGATIVE0.1-1.5 INDETERMINANT>1.5 POSITIVE . PROGRESS AND PROCEDURES Course of Care: Pt has recurrent hypoglycemia despite normal arrival glucose and juice with sandwich here. 18:13 04/14/17. Orders written. Unable to write for sliding scale on [employer]. 18:37 04/14/17. Despite D10 drip at 150 ml per hour. Glucose is 40. D50 ordered. I did write sliding scale and 10 D NS on hand written orders. Disposition orders written. Disposition: Admitted. CLINICAL IMPRESSION SYMPTOMATIC HYPOGLYCEMIA. (Electronically signed by Darin Abdi MD 04/14/2017 22:34)
--- NOTE | 2017-04-14 15:55 | ED NURSING NOTES ---
Clinical Report - Nurses [facility] [address] [place] [address] 04/14/2017 11:30 Patient: MATHEW KUO TRIAGE Triage time 11:45. Acuity: LEVEL 4. Chief Complaint: (pt was seen yesterday, today just doesn't feel right). Alert. No acute distress. --11:50 Katharine Garcia R.N. 12:09 04/14/17. BP: 164/73. HR: 69. RR: 18. O2 saturation: 97% on room air. Temp: 97.8 F. Pain level now: 0. --12:10 Katharine Garcia R.N. Weight: 111.1 kg stated. Height/Length: 66 inches Per Patient. BMI: 39.6. --11:48 Katharine Garcia R.N. Medications Aspirin Oral 325mg twice daily. Atorvastatin Calcium Oral. CloNIDine HCl Oral. Glipizide Oral. MetFORMIN HCl Oral 500 mg, 2x a day. Metoprolol Tartrate Oral. Triamterene-HCTZ Oral. --11:47 Katharine Garcia R.N. Allergies Percodan. Procardia. --11:47 Katharine Garcia R.N. History Arrived by EMS. Historian: EMS and patient. ( Pt lives in house with son and daughter.). FALL RISK ASSESSMENT: Fall risk assessment completed per protocol. Risk factors identified include patient age greater than 65 years and impairment of mobility. Fall interventions initiated. Call light in reach of patient. Instructed not to get up without assistance. --11:50 Katharine Garcia R.N. PROBLEMS: Atrial Fibrillation. Weakness. Healing Abscess. Abscess. Cellulitis. Sepsis. UTI - Urinary Tract Infection. Gallstone(s). Sebaceous Cyst. Vomiting. Hypercholesterolemia. Abrasion(s). Laceration. Diabetes Mellitus. Hypertension. --11:46 Katharine Garcia R.N. ADDITIONAL SURGERIES: Cholecystectomy. Pylenital cyst drained. --11:46 Katharine Garcia R.N. Interventions ID band on patient. To room. --11:50 Katharine Garcia R.N. PHYSICAL ASSESSMENT GENERAL / NEURO / PSYCH: ( The moment the patient got here, she needed commode, assisted slowly to commode with 2 staff members.). --11:48 Katharine Garcia R.N. NURSING PROGRESS NOTES Patient identifiers checked. Call light placed in reach. Bed placed in lowest position. Patient ready for evaluation. ( Pt voided and had large soft BM on commode, assisted back to bed.). --12:09 Katharine Garcia R.N. 12:26 04/14/2017 Site #1 started via IV in the right antecubital space with an 20g angiocath; one attempt. Blood drawn: rainbow set. Labeled in the presence of the patient and sent to the lab. Saline lock flushed with 5 mL saline. --12:26 Katharine Garcia R.N. 12:27 04/14/17. ( Accucheck 85, performed by technical support director. Pt given orange juice.). --12:27 Katharine Garcia R.N. 12:37 04/14/17. ( Pt given sandwich and jello). --12:37 Katharine Garcia R.N. 12:40 04/14/17. EKG time: (1240 PM). EKG was ordered, performed by a tech and shown to the ED physician. --12:40 Rosetta Chatman 13:37 04/14/17. Patient ID band checked for patient name and birthdate: patient confirmed. Catheterized urine collected with return of yellow-colored clear urine; sample sent to lab for urinalysis and culture. Specimen labeled in the presence of the patient. --13:37 Katharine Garcia R.N. 13:45 Pt eating half a sandwich and jello. --14:29 Katharine Garcia R.N. 14:30 04/14/17. BP: 145/40. HR: 90. RR: 18. O2 saturation: 99% on room air. --14:34 Katharine Garcia R.N. 15:31 04/14/17. Finger stick glucose: 68; ordered; performed by tech; result shown to the ED physician. --15:31 Rosetta Chatman 16:32 04/14/2017 Site #1 removed. Catheter intact. Bandage applied (infiltrated). --16:32 Katharine Garcia R.N. 16:32 04/14/2017 Site #2 started via IV in the right wrist with an 22g angiocath, with aseptic technique and good blood return; one attempt. Saline lock flushed with 10 mL saline. --16:32 Katharine Garcia R.N. 16:45 04/14/2017 Site #3 started via IV in the right forearm with an 20g angiocath, with aseptic technique and good blood return; one attempt. Saline lock flushed with saline (started by KAREEM Babin). --16:45 Katharine Garcia R.N. 16:46 04/14/2017 D-50 IVP 25 gm given over 5 minute(s) via site #3. Confirmed 5 rights. --16:46 Katharine Garcia R.N. 17:44 04/14/2017 Started bag #1 1000 mL IV Fluids IV 0.45% NS (Saline); at 150 mL/hr via site #3. Allergies verified and confirmed 5 rights. --17:44 Katharine Garcia R.N. 17:40. ( 1740 Received IV bag from pharmacy). --17:44 Katharine Garcia R.N. 17:46 04/14/2017 Clonidine PO 0.3 mg given. Confirmed 5 rights. (given in applesauce per pt preference). --17:46 Katharine Garcia R.N. 18:34 04/14/17. ( Accucheck 40, ERMD notified). --18:34 Katharine Garcia R.N. 18:56 04/14/2017 D-50 IVP 25 gm given. via site #3. Allergies verified and confirmed 5 rights. (per verbal order of ERMD). --18:56 Katharine Garcia R.N. 18:56 04/14/2017 IV Fluids IV 0.45% NS Continued: upon admission at the rate of 150 mL/hr. 800 mL remaining bag #1. IV patency established. IV site checked: no pain, redness, or swelling. IV flushed thoroughly. --18:57 Katharine Garcia R.N. 18:55. ( Pt was incontinent of urine, washed up, new attends placed, daughter here and aware of room number. Positioned for comfort.). --19:05 Katharine Garcia R.N. DISPOSITION / DISCHARGE 18:58 04/14/17. Condition at departure: improved. Admitted to Acute Care. Report was given to a nurse via a phone call. Report included patient's care, treatment, medications, reviewed medication reconcilliation, and condition (including any recent changes or anticipated changes). All questions were answered. Report was acknowledged and care was transferred. --18:58 Katharine Garcia R.N. 18:57 04/14/17. BP: 125/80. HR: 76. RR: 18. O2 saturation: 94%. Pain level now: 02/21. --18:58 Katharine Garcia R.N. 18:00 04/14/17. BP: 165/82. 17:30 04/14/17. BP: 208/74. HR: 99. O2 saturation: 94%. 16:30 04/14/17. BP: 170/76. HR: 103. RR: 18. O2 saturation: 94%. Pain level now: 10. Additional comments: pt states she has a bad back. --19:09 Katharine Garcia R.N. Locked/Released at 04/14/2017 19:11 by Katharine Garcia R.N.
[2017-04-14 19:22] VITALS: BP 151/63
--- NOTE | 2017-04-14 19:33 | History & Physical Report ---
Information Source Information Source: Self Reliability: Good History Chief Complaint hypoglycemia History of Present Illness Patient is a 82 year old female that is presenting with periodic episodes of hypoglycemia. Patient had been in her usual state of health when she was discharged from our facility. Patient while at home had peiodic episodes of dizziness, diaphoresis and shakes that would occur sporadically throughout the day without inciting factors. Patient then noticed that her sugars during these episodes were very low, values were seen to be in the 50s. Her symptoms resolved with po intake however patient was seen to have repeated episodes that would not stop. Patient came to the ER twice however did was discharged when her sugars remained consistenly high. However when the same thing happened today the patient came to the ER and her blood sugars were seen to be persistenly low. The decision was then made to admit her. Patient at the time of exam was mentating clearly but even during the exam her blood sugar dropped, she became diaphoretic and anxious. All symptoms resolved after pt ingested some sugar. Patient will be admitted and monitored for hypoglycemia. Patient History 1. HYPERTENSION 2. HYPOKALEMIA 3. Atrial fibrillation 4. Hypoglycemia associated with type 2 diabetes mellitus 5. DIABETES MELLITUS Social History Pt lives at home with her daughter. She manages most of her ADLs indepentetly. Patient does not smoke, drink or use illicit substances. Patient was questioning about possibly moving to an assisted living facility. Family History Family history was reviewed; no changes noted. Medications and Allergies Medications Home Medications Aspiring 325 mg atorvastatin 10 mg dab clonidine .3 mg tid glipizide 5 mg po daily metformin 1000 mg po bid metoprolol 25 mg daily triamterene/hctz 25/37.5 Current Medications Sig/Ajay Start time Last Medication Dose Route Stop Time Status Admin Atorvastatin Calcium 10 MG QPM 04/15 1800 AC PO Aspirin 325 MG DAILY 04/15 0900 AC PO Hydrochlorothiazide 25 MG DAILY 04/15 900 AC PO Metformin HCl 850 MG BID 04/15 900 AC PO Metoprolol Succinate 25 MG DAILY 04/15 900 AC PO Clonidine HCl 0.3 MG TID 04/14 2200 AC PO Insulin Human Lispro See Dose ACHS 04/14 2100 AC Insts (1) SC Insulin Human Lispro See Dose ACHS 04/14 2100 AC Insts (2) SC Acetaminophen 650 MG Q6H PRN 04/14 1945 AC 04/14 PO 2215 Dextrose See Dose Q15MIN PRN 04/14 1900 AC Insts (3) IV Dextrose See Dose Q15MIN PRN 04/14 1900 AC Insts (4) PO Dextrose/Water 1,000 ML ASDIRECTED PRN 04/14 1900 AC IV Glucagon 1 MG Q15MIN PRN 04/14 1900 AC IM Ondansetron HCl 4 MG Q4H PRN 04/14 1815 AC 04/15 IV 0516 Dextrose 50 ML ASDIRECTED 04/14 1730 AC 04/15 Sodium Chloride 1,000 ML IV 04/15 0600 0012 Dose Instructions: (1)Insulin Human Lispro: LOW DOSE: ACCUCHECK AND SLIDING SCALE >>To change sliding scale DISCONTINUE this order and enter a NEW order. Thanks< (2)Insulin Human Lispro: LOW DOSE: ACCUCHECK AND SLIDING SCALE >>To change sliding scale DISCONTINUE this order and enter a NEW order. Thanks< (3)Dextrose: 25 OR 50 ML SEE ADMIN CRITERIA (4)Dextrose: 1 OR 2 TUBES SEE ADMIN CRITERIA Allergies Coded Allergies: Menthol (From GOLD RODRIGUEZ MEDICATED) (04/14/17) Nifedipine (From PROCARDIA) (04/04/17) Pramoxine (From GOLD RODRIGUEZ MEDICATED) (04/14/17) Uncoded Allergies: DOVE PRODUCTS (Mild, 04/04/17) GRAPEFRUIT (DRUG INTERACTION 04/14/17) Review of Systems Constitutional Sweats, Weakness. Eyes Denies: Pain, Vision Change, Conjunctival Inflammation, Eyelid Inflammation, Redness, Other. ENT Denies: Ear Pain, Ear Discharge, Nose Pain, Nasal Discharge, Nasal Congestion, Mouth Pain, Mouth Swelling, Throat Pain, Throat Swelling, Other. Respiratory Denies: Cough, Dry, SOB w/exertion, Wheezing, Hemoptysis, Pleuritic Pain, Sputum , Other. Cardiovascular Light-headedness. Denies: Chest Pain, Palpitations, Orthopnea, PND, Edema, Other. Gastrointestinal Nausea. Denies: Vomiting, Abdominal Pain, Diarrhea, Constipation, Melena, Hematochezia, Other. Genitourinary Denies: Dysuria, Frequency, Incontinence, Hematuria, Retention, Other. Musculoskeletal Denies: Neck Pain, Shoulder Pain, Arm Pain, Back Pain, Hand Pain, Leg Pain, Foot Pain, Other. Skin Denies: Rash, Lesions, Jaundice, Bruising, Other. Neurological Denies: Weakness, Numbness, Incoordination, Change in speech, Confusion, Seizures, Other. Physical Exam Vital Signs / I&Os Vital Signs Date Time Temp Pulse Resp B/P Pulse O2 O2 Flow FiO2 Ox Delivery Rate 04/15 0240 98.8 69 18 139/79 96 Room Air 04/15 0019 Room Air 04/14 2236 98.4 77 17 136/70 95 Room Air 04/14 1922 98.2 95 20 151/63 96 Room Air I&O 04/14 0800 04/14 1600 04/15 0000 Intake Total Output Total Balance General Appearance Alert, Oriented X3, No acute distress HEENT Atraumatic, PERRLA, Moist mucous membranes Lungs Clear to auscultation Cardiovascular Regular rate and rhythm, No murmurs, gallops, rubs Abdomen Soft, No tenderness Pelvic No masses Extremities No edema, Normal pulses, No tenderness Skin No Breakdown Neurological Normal speech, Normal tone, Cranial nerves intact, Strength 5/5 x4 ext's, No lateralizing signs Psych/Mental Status Mood normal LAB Results Laboratory Tests 04/14 04/14 04/14 04/15 1220 1220 1327 0550 Chemistry Plasma Sodium (136 - 145 mmol/L) 139 Pending Plasma Potassium (3.5 - 5.1 mmol/L) 4.9 Pending Plasma Chloride (98 - 107 mmol/L) 103 Pending CO2 (Enzymatic) (21 - 32 mmol/L) 23 Pending BUN (7 - 18 mg/dL) 51 Pending Creatinine (0.6 - 1.3 mg/dL) 2.0 Pending Est GFR ( Amer) (mL/min) 30.58 Pending Est GFR (Non-Af Amer) (mL/min) 25.23 Pending Glucose (70 - 110 mg/dL) 83 Pending Plasma Calcium (8.5 - 10.1 mg/dL) 8.7 Pending Plasma Magnesium (1.8 - 2.4 mg/dL) 1.6 Pending Total Bilirubin (0.0 - 1.0 mg/dL) 0.3 Pending AST (15 - 37 U/L) 20 Pending ALT (12 - 78 U/L) 20 Pending Alkaline Phosphatase (46 - 116 U/L) 74 Pending Creatine Kinase (24 - 260 U/L) 24 Troponin (0.00 - 1.5 ng/mL) <0.05 B-Natriuretic Peptide (5 - 100 pg/ml) 54.8 Total Protein (6.4 - 8.2 g/dL) 7.5 Pending Albumin (3.3 - 5.0 g/dL) 3.1 Pending Coagulation INR (0.8 - 1.2) 1.1 Hematology WBC (4.5 - 11.5 K/uL) 15.8 Pending RBC (4.00 - 5.20 M/uL) 4.01 Pending Hgb (12.0 - 16.0 gm/dL) 12.0 Pending Hct (36.0 - 46.0 %) 36.3 Pending MCV (80 - 100 fL) 91 Pending MCH (26 - 34 pg) 30 Pending RDW (11.6 - 14.8 %) 14.4 Pending Neut % (Auto) (50 - 75 %) 83.0 Lymph % (Auto) (25 - 40 %) 11.8 [place] % (Auto) (3 - 14 %) 4.6 Eos % (Auto) (0 - 4 %) 0.4 Baso % (Auto) (0 - 2 %) 0.2 Plt Count, EDTA (150 - 400 K/uL) 390 Pending PUBS MCHC (31 - 37 g/dL) 33 Pending Urines Urine Color YELLOW Urine Appearance SL CLOUDY Urine pH (5.0 - 8.0) 6.0 Ur Specific [place] (1.010 - 1.030) 1.020 Urine Protein (NEGATIVE) 1+ Urine Ketones (NEGATIVE) NEGATIVE Urine Blood (NEGATIVE) NEGATIVE Urine Nitrite (NEGATIVE) NEGATIVE Urine Bilirubin (NEGATIVE) NEGATIVE Urine Urobilinogen (0.2 - 1.0 EU/dL) 0.2 Ur Leukocyte Esterase (NEGATIVE) NEGATIVE Urine RBC (0 - 1 rbc/hpf) NONE SEEN Urine WBC (0 - 1 wbc/hpf) NONE SEEN Ur Epithelial Cells (0 - 5 EPI/hpf) NONE SEEN Urine Bacteria (NONE SEEN) NONE SEEN Urine Glucose (NEGATIVE) NEGATIVE Urine Comment CULT NOT INDICATED Assessment and Plan Problem List 1. Hypoglycemia associated with type 2 diabetes mellitus Plan - pt has been having periodic hypoglycemic episodes secondary to oral hypoglycemics - most likely the inciting medication is glipizide - will keep patient on metformin 850 mg bid and will hold glipizide - will keep patient on sliding scale insulin coverage - will monitor blood sugars for hypoglycemia - if patient remains stable while on carb consistent diet will possibly discharge in the evening 2. HYPERTENSION Status Chronic Onset Date Unknown Plan - establishe diagnosis - pts pressure was elevatd in the ER but due to not taking clonidine - will resume all home bp medications - currently bp is stable 3. Atrial fibrillation Status Acute Onset Date 08/26/16 Plan - known history of atrial fibrillation - currently patient is rate controlled - will c/w home meds and monitor patient on telemetry - will approach patient about why she is not on anti-coagulation
--- NOTE | 2017-04-14 22:34 | ED DISCHARGE INSTRUCTIONS ---
Patient: MATHEW KUO General Instructions [facility] VisitID: [id number] [address] [place] [address] 82y, F Registration Date/Time: 04/14/2017 SYMPTOMATIC HYPOGLYCEMIA. (Electronically signed by Darin Abdi MD 04/14/2017 22:34)
--- NOTE | 2017-04-14 22:34 | ED MAR SUMMARY ---
..... Medication Administration Record [facility] [address] [place] [address] Patient: MATHEW KUO Visit ID: [id number] 82y, F Weight: 111.1 kg Height/Length: 66 in BMI: 39.6 ALLERGIES: Percodan, Procardia Given 16:46 04/14/2017 Katharine Garcia R.N. Medication Administered: D-50 [IVP], Dose: 25 gm IVP over 5 minute(s), Site: #3 right forearm. Medication Ordered: D-50 IV 25 gm (NOW). Start 17:44 04/14/2017 Katharine Garcia R.N., Continued Upon Admission 18:56 04/14/2017 Katharine Garcia R.N. Medication Administered: IV 0.45% NS (SALINE), Dose: IV Fluids, Rate: 150 mL/hr, Dispensed: 1000 mL bag, Site: #3 right forearm. Medication Ordered: IV 0.45% NS with Dextrose 50 gm: initial bolus none -, then 150 mL/hr for 2h (NOW); Urgent. Given 17:46 04/14/2017 Katharine Garcia R.N. Medication Administered: CLONIDINE [PO], Dose: 0.3 mg PO. Medication Ordered: Clonidine PO 0.3 mg (NOW). Given 18:56 04/14/2017 Katharine Garcia R.N. Medication Administered: D-50 [IVP], Dose: 25 gm IVP, Site: #3 right forearm. Medication Ordered: D-50 IV 25 gm (NOW).
--- NOTE | 2017-04-14 22:34 | ED MED RECONCILIATION SUMMARY ---
Patient: MATHEW KUO Medication Reconciliation Report [facility] VisitID: [id number] [address] [place] [address] 82y, F Registration Date/Time: 04/14/2017 Weight: 111.1 kg Height/Length: 66 in. BMI: 39.6 ALLERGIES: Percodan, Procardia The patient's Home Medications are listed below: THE FOLLOWING MEDICATIONS NEED TO BE RECONCILED: Aspirin Oral 325mg twice daily Atorvastatin Calcium Oral CloNIDine HCl Oral Glipizide Oral MetFORMIN HCl Oral 500 mg, 2x a day Metoprolol Tartrate Oral Triamterene-HCTZ Oral The source(s) of the original Home Medication information: Not obtained. The following Medications were given to the patient in the Emergency Department: D-50 [IVP] IVP 25 gm, administered: 04/14/2017 4:46:00 PM IV 0.45% NS IV Fluids bolus 0, then 150 mL/hr, administered: 04/14/2017 5:44:00 PM Clonidine [PO] PO 0.3 mg, administered: 04/14/2017 5:46:00 PM D-50 [IVP] IVP 25 gm, administered: 04/14/2017 6:56:00 PM The following Medications were prescribed to the patient: None.
--- NOTE | 2017-04-14 22:34 | ED MAR SUMMARY ---
..... Medication Administration Record [facility] [address] [place] [address] Patient: MATHEW KUO Visit ID: [id number] 82y, F Weight: 111.1 kg Height/Length: 66 in BMI: 39.6 ALLERGIES: Percodan, Procardia Given 16:46 04/14/2017 Katharine Garcia R.N. Medication Administered: D-50 [IVP], Dose: 25 gm IVP over 5 minute(s), Site: #3 right forearm. Medication Ordered: D-50 IV 25 gm (NOW). Start 17:44 04/14/2017 Katharine Garcia R.N., Continued Upon Admission 18:56 04/14/2017 Katharine Garcia R.N. Medication Administered: IV 0.45% NS (SALINE), Dose: IV Fluids, Rate: 150 mL/hr, Dispensed: 1000 mL bag, Site: #3 right forearm. Medication Ordered: IV 0.45% NS with Dextrose 50 gm: initial bolus none -, then 150 mL/hr for 2h (NOW); Urgent. Given 17:46 04/14/2017 Katharine Garcia R.N. Medication Administered: CLONIDINE [PO], Dose: 0.3 mg PO. Medication Ordered: Clonidine PO 0.3 mg (NOW). Given 18:56 04/14/2017 Katharine Garcia R.N. Medication Administered: D-50 [IVP], Dose: 25 gm IVP, Site: #3 right forearm. Medication Ordered: D-50 IV 25 gm (NOW).
--- NOTE | 2017-04-14 22:34 | ED MED RECONCILIATION SUMMARY ---
Patient: MATHEW KUO Medication Reconciliation Report [facility] VisitID: [id number] [address] [place] [address] 82y, F Registration Date/Time: 04/14/2017 Weight: 111.1 kg Height/Length: 66 in. BMI: 39.6 ALLERGIES: Percodan, Procardia The patient's Home Medications are listed below: THE FOLLOWING MEDICATIONS NEED TO BE RECONCILED: Aspirin Oral 325mg twice daily Atorvastatin Calcium Oral CloNIDine HCl Oral Glipizide Oral MetFORMIN HCl Oral 500 mg, 2x a day Metoprolol Tartrate Oral Triamterene-HCTZ Oral The source(s) of the original Home Medication information: Not obtained. The following Medications were given to the patient in the Emergency Department: D-50 [IVP] IVP 25 gm, administered: 04/14/2017 4:46:00 PM IV 0.45% NS IV Fluids bolus 0, then 150 mL/hr, administered: 04/14/2017 5:44:00 PM Clonidine [PO] PO 0.3 mg, administered: 04/14/2017 5:46:00 PM D-50 [IVP] IVP 25 gm, administered: 04/14/2017 6:56:00 PM The following Medications were prescribed to the patient: None.
--- NOTE | 2017-04-14 22:34 | ED DISCHARGE INSTRUCTIONS ---
Patient: MATHEW KUO General Instructions [facility] VisitID: [id number] [address] [place] [address] 82y, F Registration Date/Time: 04/14/2017 SYMPTOMATIC HYPOGLYCEMIA. (Electronically signed by Darin Abdi MD 04/14/2017 22:34)
[2017-04-14 22:36] VITALS: BP 136/70
--- NOTE | 2017-04-14 23:34 | NUR ---
PT ARRIVED TO ROOM 203B FROM ED VIA STRETCHER AND FACILITY TECH TRANSPORT AROUND 1919. PT WAS ABLE TO AMBULATE FROM STRETCHER TO BED ABOUT 10 FEET WITH WALKER AND SBA. A&OX4. CALM AND COOPERATIVE WITH CARE. VSS. HYPOGLYCEMIA IMPROVING. PT C/O PRATHER AND NAUSEA THIS SHIFT. ZOFRAN AND TYLENOL GIVEN AND EFFECTIVE. WCTM.
[2017-04-15 02:40] VITALS: BP 139/79
--- NOTE | 2017-04-15 06:01 | Progress Note ---
Subjective General Note Date: April 15, 2017 Admission Date: April 14, 2017 Hospital Day: 2 PCP: Yulissa HOLDEN Status: Observation, ACU Advanced Directive: NO CODE Room: 203-B Admission History: The patient is a 82-year-old white female with a significant past mental history of hypertension, atrial fibrillation, type 2 diabetes mellitus, hypercholesterolemia, who presented to [facility] emergency department on the day of admission secondary to complaints of weakness/low blood sugar. [facility] ER evaluation was consistent with persistent hypoglycemia. Secondary to the above, the patient was admitted by Jong Meier M.D. for further evaluation and treatment. For other history present illness, past medical history, family history, social history, review of systems, and admission physical examination please see the patient's history and physical examination and ER visit note in the patient's medical record. Subjective: The patient States she is doing well today. Status much improved. Remains slightly weak. Eating appropriately. Patient requests: None Medications and Allergies Medications Current Medications Sig/Ajay Start time Last Medication Dose Route Stop Time Status Admin Atorvastatin Calcium 10 MG QPM 04/15 1800 AC PO Aspirin 325 MG DAILY 04/15 0900 AC PO Hydrochlorothiazide 25 MG DAILY 04/15 0900 AC PO Metformin HCl 850 MG BID 04/15 0900 AC PO Metoprolol Succinate 25 MG DAILY 04/15 0900 AC PO Clonidine HCl 0.3 MG TID 04/14 2200 AC PO Insulin Human Lispro See Dose ACHS 06 2100 AC Insts (1) SC Insulin Human Lispro See Dose ACHS 04/14 2100 AC Insts (2) SC Acetaminophen 650 MG Q6H PRN 04/14 1945 AC 04/14 PO 2215 Dextrose See Dose Q15MIN PRN 04/14 1900 AC Insts (3) IV Dextrose See Dose Q15MIN PRN / 1900 AC Insts (4) PO Dextrose/Water 1,000 ML ASDIRECTED PRN 04/14 1900 AC IV Glucagon 1 MG Q15MIN PRN 04/14 1900 AC IM Ondansetron HCl 4 MG Q4H PRN / 1815 AC 04/15 IV 0516 Dextrose 50 ML ASDIRECTED 04/14 1730 AC 04/15 Sodium Chloride 1,000 ML IV 04/15 0600 0012 Dose Instructions: (1)Insulin Human Lispro: LOW DOSE: ACCUCHECK AND SLIDING SCALE >>To change sliding scale DISCONTINUE this order and enter a NEW order. Thanks< (2)Insulin Human Lispro: LOW DOSE: ACCUCHECK AND SLIDING SCALE >>To change sliding scale DISCONTINUE this order and enter a NEW order. Thanks< (3)Dextrose: 25 OR 50 ML SEE ADMIN CRITERIA (4)Dextrose: 1 OR 2 TUBES SEE ADMIN CRITERIA Allergies Coded Allergies: Menthol (From GOLD RODRIGUEZ MEDICATED) (04/14/17) Nifedipine (From PROCARDIA) (04/04/17) Pramoxine (From GOLD RODRIGUEZ MEDICATED) (04/14/17) Uncoded Allergies: DOVE PRODUCTS (Mild, 04/04/17) GRAPEFRUIT (DRUG INTERACTION 04/14/17) Physical Exam Vital Signs / I&Os Vital Signs Date Time Temp Pulse Resp B/P Pulse O2 O2 Flow FiO2 Ox Delivery Rate 04/15 0240 98.8 69 18 139/79 96 Room Air 04/15 0019 Room Air 04/14 2236 98.4 77 17 136/70 95 Room Air 04/14 1922 98.2 95 20 151/63 96 Room Air I&O 04/15 0000 04/14 1600 04/14 0800 Intake Total Output Total Balance General Appearance Alert, Oriented X3, Cooperative, No acute distress Lungs Clear to auscultation, Normal air movement Cardiovascular Regular rate and rhythm, Normal S1 and S2 Abdomen Normal bowel sounds, Soft, No tenderness Extremities No cyanosis, No clubbing Neurological Cranial nerves intact, No lateralizing signs Psych/Mental Status Mental status normal, Mood normal LAB Results Laboratory Tests 04/15 04/14 04/14 04/14 0550 1327 1220 1220 Chemistry Plasma Sodium (136 - 145 mmol/L) Pending 139 Plasma Potassium (3.5 - 5.1 mmol/L) Pending 4.9 Plasma Chloride (98 - 107 mmol/L) Pending 103 CO2 (Enzymatic) (21 - 32 mmol/L) Pending 23 BUN (7 - 18 mg/dL) Pending 51 Creatinine (0.6 - 1.3 mg/dL) Pending 2.0 Est GFR ( Amer) (mL/min) Pending 30.58 Est GFR (Non-Af Amer) (mL/min) Pending 25.23 Glucose (70 - 110 mg/dL) Pending 83 Plasma Calcium (8.5 - 10.1 mg/dL) Pending 8.7 Plasma Magnesium (1.8 - 2.4 mg/dL) Pending 1.6 Total Bilirubin (0.0 - 1.0 mg/dL) Pending 0.3 AST (15 - 37 U/L) Pending 20 ALT (12 - 78 U/L) Pending 20 Alkaline Phosphatase (46 - 116 U/L) Pending 74 Creatine Kinase (24 - 260 U/L) 24 Troponin (0.00 - 1.5 ng/mL) <0.05 B-Natriuretic Peptide (5 - 100 pg/ml) 54.8 Total Protein (6.4 - 8.2 g/dL) Pending 7.5 Albumin (3.3 - 5.0 g/dL) Pending 3.1 Coagulation INR (0.8 - 1.2) 1.1 Hematology WBC (4.5 - 11.5 K/uL) Pending 15.8 RBC (4.00 - 5.20 M/uL) Pending 4.01 Hgb (12.0 - 16.0 gm/dL) Pending 12.0 Hct (36.0 - 46.0 %) Pending 36.3 MCV (80 - 100 fL) Pending 91 MCH (26 - 34 pg) Pending 30 RDW (11.6 - 14.8 %) Pending 14.4 Neut % (Auto) (50 - 75 %) 83.0 Lymph % (Auto) (25 - 40 %) 11.8 [place] % (Auto) (3 - 14 %) 4.6 Eos % (Auto) (0 - 4 %) 0.4 Baso % (Auto) (0 - 2 %) 0.2 Plt Count, EDTA (150 - 400 K/uL) Pending 390 PUBS MCHC (31 - 37 g/dL) Pending 33 Urines Urine Color YELLOW Urine Appearance SL CLOUDY Urine pH (5.0 - 8.0) 6.0 Ur Specific [place] (1.010 - 1.030) 1.020 Urine Protein (NEGATIVE) 1+ Urine Ketones (NEGATIVE) NEGATIVE Urine Blood (NEGATIVE) NEGATIVE Urine Nitrite (NEGATIVE) NEGATIVE Urine Bilirubin (NEGATIVE) NEGATIVE Urine Urobilinogen (0.2 - 1.0 EU/dL) 0.2 Ur Leukocyte Esterase (NEGATIVE) NEGATIVE Urine RBC (0 - 1 rbc/hpf) NONE SEEN Urine WBC (0 - 1 wbc/hpf) NONE SEEN Ur Epithelial Cells (0 - 5 EPI/hpf) NONE SEEN Urine Bacteria (NONE SEEN) NONE SEEN Urine Glucose (NEGATIVE) NEGATIVE Urine Comment CULT NOT INDICATED Assessment and Plan Problem List 1. Hypoglycemia associated with type 2 diabetes mellitus Plan -Improved -Insulin sliding scale, metformin -Monitor use of metformin in borderline renal function -Probable discharge in a.m. if stable 2. Hypomagnesemia Status Acute Onset Date Unknown Plan -Patient with findings of mild hypomagnesemia -IV/Oral supplementation -Monitor 3. HYPERTENSION Status Chronic Onset Date Unknown Plan -adequate controlled -continue present therapy -Low-salt diet 4. Prerenal azotemia Status Acute Onset Date Unknown Plan -Patient with findings of prerenal azotemia -BUN/creatinine improved today -Continue IV fluid supplementation -Monitor Current status: Fair, improved Anticipated discharge date: Anticipated discharge in a.m. Anticipated discharge placement: Assisted living/senior living facility Patient care time: Time spent in chart review, patient interview, physical exam, CPOE, and care documentation: 25 minutes Visit to patient today: 1 Complexity of care: Moderate E&M Codes Rounding: Obsv-Comp/Moderate/[id number]
--- NOTE | 2017-04-15 06:26 | NUR ---
PT SLEPT BETWEEN CARE. UP TO BSC WITH ONE ASSIST. FELT VERY WEAK AND NAUSEAUS IN THE MORNING, ZOFRAN GIVEN. PT REQUESTED BSG LEVEL BE TAKEN, FOUND TO BE 213. FLUIDS STOPPED. VSS ON RA.
[2017-04-15 07:02] VITALS: BP 155/72
[2017-04-15 11:55] VITALS: BP 144/62
--- NOTE | 2017-04-15 13:17 | NUR ---
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
--- NOTE | 2017-04-15 14:26 | NUR ---
NUTRITION ASSESSMENT: S: Pt admitted with dx/o hypoglycemia, weakness, HTN. PMH includes: HTN, hypokalemia, A fib, diabetes, episodes of hypglycemia. Pt eating ~20-100% of meals. This pt known to me from previous admissions where she has been given nutrition education related to diabetes and cardiac diet as well. Wts during aug 2016 admission below. Denies chewing or swallowing problems. Pts son and daughter are her caregivers at home, she appears to be independed with ADLs and can feed herself. O: Diet Rx: Consistent Carb Food Allergies: Graperfruit Wts: 94.8 kg Ht: 66" IBW: 52-66 kg ABW: 75 kg Wt Aug, 2016: 95.8 kg Est Kcals: ~4713-8467 kcals per day Est Pro: ~75-90 g per day Est Fluids: ~2250 mls per day Meds Incl: aspirin, lipitor, HCTZ, clonidine, insulin, metformin, metoprolol, see eMar for complete list. Labs Incl: (04/15) glucose 178, BUN 42, Creat 1.5, Na+ 140, K+ 4.8, Mag 1.5, Ca+ 6.3, albumin 3.0, HCT 36, HGB 11.6 Skin: Rashad Score: [address], coccyx erythema, poor skin turgor. Accuchecks: 93-216 A: Pt appears to have a fair appetite. Rev'd meds/labs and blood sugars. skin fragile. continue consistent carb diet and offer BOOST Glucose control if po less than 50% to help ensure adequate protein intake for optimal skin integrity. P: BOOST Glucose control if po less than 50%
[2017-04-15 14:34] VITALS: BP 132/70
--- NOTE | 2017-04-15 15:29 | NUR ---
NUTRITION ADDENDUM: Spoke with pt this afternoon. States that her son does cook for her sometimes but meals ususally consist of soups, chili, chicken, sandwiches, etc. Encouraged pt to try and avoid added salts and for "low sodium foods" as well as lean proteins with smaller amounts of carbohdyrates. Pt states that she has her info from last admission and will refer to it when she gets home. RD avail for further consult if desired.
[2017-04-15 17:47] VITALS: BP 152/81
--- NOTE | 2017-04-15 20:01 | NUR ---
PT A&OX3, LS CTA AND DIMINISHED IN BASES AND BT ACTIVE. +1 EDEMA IN BLE'S. NO C/O PAIN OR NAUSEA. UP TO CHAIR FOR DINNER, TOLERATED WELL. NO SOB. DAUGHTER INTO VISIT DURING DINNER. PT IN GOOD SPIRITS, RESTING W/ CALL LIGHT IN REACH.
--- NOTE | 2017-04-15 20:10 | NUR ---
I discussed with the patient their current medications, possible side effects, and answered questions.
[2017-04-15 23:56] VITALS: BP 138/70
[2017-04-16 02:45] VITALS: BP 151/58
--- NOTE | 2017-04-16 06:34 | NUR ---
C/O CONSTIPATION STATES LAST BM DAY OF ADMISSION. GIVEN FRUIT LAX, RESULTS PENDING.
[2017-04-16 06:46] VITALS: BP 174/80
--- NOTE | 2017-04-16 07:37 | Progress Note ---
Subjective General Note Date: April 16, 2017 Admission Date: April 14, 2017 Hospital Day: 3 PCP: Yulissa HOLDEN Status: Observation, ACU Advanced Directive: NO CODE Room: 203-B Admission History: The patient is a 82-year-old white female with a significant past mental history of hypertension, atrial fibrillation, type 2 diabetes mellitus, hypercholesterolemia, who presented to [facility] emergency department on the day of admission secondary to complaints of weakness/low blood sugar. [facility] ER evaluation was consistent with persistent hypoglycemia. Secondary to the above, the patient was admitted by Jong Meier M.D. for further evaluation and treatment. For other history present illness, past medical history, family history, social history, review of systems, and admission physical examination please see the patient's history and physical examination and ER visit note in the patient's medical record. Subjective: The patient states she is doing well today. No recurrent episodes of hypoglycemia. Eating well. Ready for discharge Patient requests: None Medications and Allergies Medications Current Medications Sig/Ajay Start time Last Medication Dose Route Stop Time Status Admin Atorvastatin Calcium 10 MG QPM 04/15 1800 AC 04/15 PO 1711 Magnesium Chloride 535 MG TID 04/15 1400 AC 04/16 PO 0606 Aspirin 325 MG DAILY 04/15 0900 AC 04/15 PO 0935 Hydrochlorothiazide 25 MG DAILY 04/15 0900 AC 04/15 PO 0935 Metformin HCl 850 MG BID 04/15 0900 AC 04/15 PO 2117 Metoprolol Succinate 25 MG DAILY 04/15 0900 AC 04/15 PO 0925 Clonidine HCl 0.3 MG TID 04/14 2200 AC 04/16 PO 0606 Insulin Human Lispro See Dose ACHS 04/14 2100 AC 04/15 Insts (1) SC 2117 Acetaminophen 650 MG Q6H PRN 04/14 1945 AC 04/16 PO 0616 Dextrose See Dose Q15MIN PRN 04/14 1900 AC Insts (2) IV Dextrose See Dose Q15MIN PRN 04/14 1900 AC Insts (3) PO Dextrose/Water 1,000 ML ASDIRECTED PRN 04/14 1900 AC IV Glucagon 1 MG Q15MIN PRN 04/14 1900 AC IM Ondansetron HCl 4 MG Q4H PRN / 1815 AC 04/15 IV 0516 Dose Instructions: (1)Insulin Human Lispro: LOW DOSE: ACCUCHECK AND SLIDING SCALE >>To change sliding scale DISCONTINUE this order and enter a NEW order. Thanks< (2)Dextrose: 25 OR 50 ML SEE ADMIN CRITERIA (3)Dextrose: 1 OR 2 TUBES SEE ADMIN CRITERIA Allergies Coded Allergies: Menthol (From GOLD RODRIGUEZ MEDICATED) (04/14/17) Nifedipine (From PROCARDIA) (04/04/17) Pramoxine (From GOLD RODRIGUEZ MEDICATED) (04/14/17) Uncoded Allergies: DOVE PRODUCTS (Mild, 04/04/17) GRAPEFRUIT (DRUG INTERACTION 04/14/17) Physical Exam Vital Signs / I&Os Vital Signs Date Time Temp Pulse Resp B/P Pulse O2 O2 Flow FiO2 Ox Delivery Rate 04/16 0646 98.1 97 20 174/80 94 Room Air 04/16 0245 98.4 80 20 151/58 92 Room Air / 2356 98.2 91 16 138/70 98 Room Air / 1800 Room Air 04/15 1747 98.4 104 16 152/81 97 Room Air 04/15 1434 98.8 107 20 132/70 94 Room Air / 1155 98.4 73 20 144/62 94 Room Air 04/15 0810 Room Air I&O 04/16 0000 06/02 1600 02 0800 Intake Total 351 542 1550 Output Total 641 829 7215 Balance 100 5 328 General Appearance Alert, Oriented X3, Cooperative, No acute distress Lungs Clear to auscultation Cardiovascular Regular rate and rhythm, Normal S1 and S2 Extremities No cyanosis, No clubbing Neurological Cranial nerves intact, No lateralizing signs Psych/Mental Status Mental status normal, Mood normal LAB Results Laboratory Tests 04/16 06 Chemistry Plasma Sodium (136 - 145 mmol/L) 141 Plasma Potassium (3.5 - 5.1 mmol/L) 4.7 Plasma Chloride (98 - 107 mmol/L) 105 CO2 (Enzymatic) (21 - 32 mmol/L) 27 BUN (7 - 18 mg/dL) 41 Creatinine (0.6 - 1.3 mg/dL) 1.6 Est GFR ( Amer) (mL/min) 39.56 Est GFR (Non-Af Amer) (mL/min) 32.64 Glucose (70 - 110 mg/dL) 184 Plasma Calcium (8.5 - 10.1 mg/dL) 8.5 Hematology WBC (4.5 - 11.5 K/uL) 12.6 RBC (4.00 - 5.20 M/uL) 3.62 Hgb (12.0 - 16.0 gm/dL) 10.9 Hct (36.0 - 46.0 %) 33.0 MCV (80 - 100 fL) 91 MCH (26 - 34 pg) 30 RDW (11.6 - 14.8 %) 14.4 Neut % (Auto) (50 - 75 %) Pending Lymph % (Auto) (25 - 40 %) Pending [place] % (Auto) (3 - 14 %) Pending Band Neutrophils % (0 - 8 %) Pending Plt Count, EDTA (150 - 400 K/uL) 337 PUBS MCHC (31 - 37 g/dL) 33 Assessment and Plan Problem List 1. Hypoglycemia associated with type 2 diabetes mellitus Plan -Resolved -Discharged today on metformin 1000 mg by mouth twice a day -Outpatient follow-up with PCP next week 2. Hypomagnesemia Status Acute Onset Date Unknown Plan -Slow-Mag one by mouth twice a day on discharge -Outpatient follow-up with PCP 3. Prerenal azotemia Status Acute Onset Date Unknown Plan -Stable -Decreased diuretic dosage -Encourage oral intake of fluids 4. Hypertension Status Chronic Onset Date Unknown Plan -Blood pressure adequately controlled. -BP 139/57 mmHg -Low-salt diet -Discharge today. Current status: Fair, improved Anticipated discharge date: Today Anticipated discharge placement: Home Patient care time: Time spent in chart review, patient interview, physical exam, CPOE, and care documentation: Greater than 30 minutes Visit to patient today: 2 Complexity of care: Moderate For other recommendations regarding discharge diet, activity, followup, and discharge medications please see the patient's discharge instructions. Greater than 30 min. was spent in the patient's discharge preparation including discharge interview and physical examination, progress note, discharge instructions, and discharge summary E&M Codes Discharge: Observation - All/[id number]
[2017-04-16 10:08] VITALS: BP 139/57
[2017-04-16] MEDS ORDERED: MAG6464 MG PO ×2 (12:40)
--- NOTE | 2017-04-16 12:41 | Provider's Discharge Care Plan ---
Problem, Goal, Plan Problem List 1. Hypoglycemia associated with type 2 diabetes mellitus Goals: Improve disease control, Prevent disease progress Instructions: Follow up as directed, Take meds as directed, Avoid processed foods
--- NOTE | 2017-04-16 12:45 | Discharge Summary ---
Discharge Summary Report Admit Date 04/14/17 Discharge Date 04/16/17 Admission Diagnosis 1. Hypoglycemia Discharge Diagnosis 1. Hypoglycemia 2. Hypomagnesemia 3. Prerenal azotemia Brief History The patient is a 82-year-old white female with a significant past mental history of hypertension, atrial fibrillation, type 2 diabetes mellitus, hypercholesterolemia, who presented to [facility] emergency department on the day of admission secondary to complaints of weakness/low blood sugar. [facility] ER evaluation was consistent with persistent hypoglycemia. Secondary to the above, the patient was admitted by Jong Meier M.D. for further evaluation and treatment. For other history present illness, past medical history, family history, social history, review of systems, and admission physical examination please see the patient's history and physical examination and ER visit note in the patient's medical record. Hospital Course The following problems and their management were noted during the patient's hospitalization: 1. Hypoglycemia The patient was admitted with findings of persistent hypoglycemia. She responded readily to withholding of oral hypoglycemics, IV glucose infusion, and regular diet. At the time of discharge her blood sugars adequately controlled with no episodes of hypoglycemia. She was discharged on metformin 1000 mg by mouth twice a day. She will monitor blood sugars on an before meals and at bedtime basis reporting these to her doctor next week. 2. Hypomagnesemia The patient was noted to have findings of mild hypomagnesemia. She received IV/ oral supplementation during her hospital stay. She was discharged on Slow-Mag one by mouth twice a day. 3. Prerenal azotemia The patient had findings of mild prerenal azotemia. BUN and creatinine improved her hospital stay. Her diuretics therapy was decreased slightly at the time of discharge. She will follow-up with her PCP next week for reevaluation. General Appearance Alert, Oriented X3, Cooperative, No acute distress Lungs Clear to auscultation, Normal air movement Cardiovascular Regular Rate, Normal S1, Normal S2 Abdomen Normal bowel sounds, Soft, No tenderness Neurological Strength at 5/5 X4 ext, Cranial nerves 3-12 NL Psych/Mental Status Mental status NL, Mood NL Lab/Imaging Laboratory Tests 04/16 605 Chemistry Plasma Sodium (136 - 145 mmol/L) 141 Plasma Potassium (3.5 - 5.1 mmol/L) 4.7 Plasma Chloride (98 - 107 mmol/L) 105 CO2 (Enzymatic) (21 - 32 mmol/L) 27 BUN (7 - 18 mg/dL) 41 Creatinine (0.6 - 1.3 mg/dL) 1.6 Est GFR ( Amer) (mL/min) 39.56 Est GFR (Non-Af Amer) (mL/min) 32.64 Glucose (70 - 110 mg/dL) 184 Plasma Calcium (8.5 - 10.1 mg/dL) 8.5 Plasma Magnesium (1.8 - 2.4 mg/dL) 1.9 Hematology WBC (4.5 - 11.5 K/uL) 12.6 RBC (4.00 - 5.20 M/uL) 3.62 Hgb (12.0 - 16.0 gm/dL) 10.9 Hct (36.0 - 46.0 %) 33.0 MCV (80 - 100 fL) 91 MCH (26 - 34 pg) 30 RDW (11.6 - 14.8 %) 14.4 Neut % (Auto) (50 - 75 %) 74 Lymph % (Auto) (25 - 40 %) 10 [place] % (Auto) (3 - 14 %) 6 Eos % (Auto) (0 - 4 %) 6 Baso % (Auto) (0 - 2 %) 0 Band Neutrophils % (0 - 8 %) 4 Metamyelocytes % (0 - 1 %) 0 Myelocytes (0 - 1 %) 0 Other Cell Type 0 Plt Count, EDTA (150 - 400 K/uL) 337 Ovalocytes OCC PUBS MCHC (31 - 37 g/dL) 33 Discharge Instructions/Meds For other recommendations regarding discharge diet, activity, followup, and discharge medications please see the patient's discharge instructions. Discharge condition: Fair, improved Greater than 30 min. was spent in the patient's discharge preparation including discharge interview and physical examination, progress note, discharge instructions, and discharge summary The patient was interviewed and examined on the day of discharge. E&M Codes Discharge: Observation - All/[id number]
[2017-04-16] MEDS ORDERED: METFORMIN HCL500 MG PO ×2 (14:35)
--- NOTE | 2017-04-16 15:33 | NUR ---
1500- PATIENT IS IN STABLE CONDITION. STATES SHE WOULD LIKE TO [place], AND REFUSES HOME HEALTH REFERRAL. THIS WAS DISCUSSED WITH DISCHARGE CONDITION. WRITTEN AND VERBAL INSTRUCTIONS PROVIDED. PT STATED UNDERSTANDING. REVIEWED IMPORTANCE OF CHECKING BLOOD SUGARS, EATING, AND DRINKING WATER WELL FOLLOWING UP WITH PCP. SHE STATES UNDERSTANDING AND AGREES TO DC HOME
== END 2017-04-16 15:15 | disposition home or self-care (01) ==
LOC: ED SRH 11:30 → ACUTE2 SRH 16:01 → TRANS SRH 16:01 → ACUTE2 SRH 19:15
PROVIDERS: ADMIT Emergency Medicine Emergency Medical Services
DX: E11.649 Type 2 diabetes mellitus with hypoglycemia without coma (principal); R39.2 Extrarenal uremia; E83.42 Hypomagnesemia; E78.00 Pure hypercholesterolemia, unspecified; I48.91 Unspecified atrial fibrillation; Z79.84 Long term (current) use of oral hypoglycemic drugs
CPT/HCPCS: 29230; 29243; 29244; 29247; 29251; 29263; 81460; 85241; 90004; 90047; 90074; 90098; 90100; 90616; 91295; 91320; 92610; 92720; 94060; 95059; 95061